=== PATIENT | female | born 1955 | race Caucasian/White ===

== ENCOUNTER 2019-07-11 00:16 | Day surgery (SDC) | payer MEDICAID, SELFPAY ==
[2019-07-06 11:26] VITALS: BMI 27.2
[2019-07-11] MEDS: LACTATED RINGERS 1,000 ML 150 ML IV CONT (12:04)
[2019-07-11 12:08] VITALS: BP 126/79; PULSE 95; RESP 16; TEMP 36.9; O2SAT 97; BMI 26.3
--- NOTE | 2019-07-11 12:16 | WPDANESEPPF ---
Anes - Initial Pre Proc Eval Procedure: Operation Date: 07/11/19 13:00 Proposed Procedures p Screening Colonoscopy - Lake Reyez MD Date/Time: 07/11/19 12:16 Surgeon: Lake Reyez MD Pre Op Diagnosis: Neoplasm Screening Patient Data Age: 64 Gender: F Height: 5 ft 4 in Weight: 69.6 kg Last Vital Signs Temp 36.9 C 07/11/19 12:08 Pulse 95 07/11/19 12:08 Resp 16 07/11/19 12:08 BP 126/79 07/11/19 12:08 Pulse Ox 97 07/11/19 12:08 Allergies Allergy/AdvReac Type Severity Reaction Status Date / Time morphine Allergy Unknown Hallucinati Verified 07/11/19 12:06 Home Medications Medication Instructions Recorded Confirmed Type hydrochlorothiazide 25 mg tablet 25 mg PO DAILY 05/09/19 07/06/19 History lisinopril 30 mg tablet 30 mg PO DAILY 05/09/19 07/06/19 History cholecalciferol (vitamin D3) 2,000 unit PO DAILY 07/06/19 07/06/19 History [Vitamin D3] iron-vit C-vit G83-kixxi acid 1 tablet PO DAILY 07/06/19 07/06/19 History [Iron 100 Plus] cp-yj-mzuf-FA-Ca carb-vit K 1 tablet PO DAILY 07/06/19 07/06/19 History [Women's Multivitamin] omeprazole magnesium [Prilosec OTC] 20 mg PO DAILY 07/06/19 07/11/19 History Patient hx anesthesia problems: none Family hx anesthesia problems: none PMFSH Past Medical History Medical History Chronic airway obstruction Hypertension Nicotine dependence Family History Family History Mother Diabetes mellitus Cerebrovascular accident Family history of diabetes mellitus in first degree relative Family history of heart disease in male family member before age 55 Father Family history of colonic diverticulitis Family history of malignant neoplasm Carcinoma of colon Sibling Family history of diabetes mellitus in first degree relative Other Family history of arthritis Hypertension Social History Social History Smoking status: Current every day smoker Alcohol intake: current Anes - Eval Final PreProcedure Day of Procedure 07/11/19 12:16 Patient weight: overweight Heart: regular rate and rhythm Lungs: clear to auscultation Airway: Mallampati scale class II, special considerations and other (dentures) Neurological: alert and oriented Last oral intake: >/= 8 hours ASA classification: III Emergent: no Anesthetic plan: proceed Anesthesia type and monitoring: general GIVS and standard monitoring Informed Consent: The patient's anesthetic plan and its attendant risks and benefits were discussed with the patient/family/POA. Questions were solicited and answers provided to the satisfaction of the patient/family/POA.
--- NOTE | 2019-07-11 12:56 | PM.HPGS ---
History of Present Illness History of Present Illness Consent: Risks, benefits, and alternatives have been discussed and questions answered. Patient agrees to proceed with procedure. Chief complaint: Neoplasm Screening Narrative: Vero Castro is a 64 year old female with history of polyps, also partial colectomy for diverticulitis Review of Systems Constitutional: Constitutional: Denies headache(s) and Denies weakness Eyes: Eyes: Denies blurry vision ENT: Reports Normal hearing present, Denies headache(s) and Denies neck pain Cardiovascular: Cardiovascular: Denies chest pain and Denies dyspnea Respiratory: Respiratory: Denies dyspnea Gastrointestinal: Gastrointestinal: Reports no additional gastrointestinal complaints Genitourinary: Genitourinary: Denies dysuria Musculoskeletal: Musculoskeletal: Denies neck pain Integumentary/Breasts: Skin/Breast: Denies dry skin Neurologic: Reports Normal hearing present, Denies headache(s) and Denies weakness Psychiatric: Psychiatric: Denies anxiety Endocrine: Endocrine: Denies change in body appearance Hematologic/Lymphatic: Hematologic/Lymphatic: Denies easy bleeding Allergic/Immunologic: Allergic/Immunologic: Denies urticaria PMF Past Medical History Medical History Chronic airway obstruction Hypertension Nicotine dependence Family History Family History Mother Diabetes mellitus Cerebrovascular accident Family history of diabetes mellitus in first degree relative Family history of heart disease in male family member before age 55 Father Family history of colonic diverticulitis Family history of malignant neoplasm Carcinoma of colon Sibling Family history of diabetes mellitus in first degree relative Other Family history of arthritis Hypertension Social History Social History Smoking status: Current every day smoker Alcohol intake: current Meds Home Medications and Allergies Home Medications Medication Instructions Recorded Confirmed Type hydrochlorothiazide 25 mg tablet 25 mg PO DAILY 05/09/19 07/06/19 History lisinopril 30 mg tablet 30 mg PO DAILY 05/09/19 07/06/19 History cholecalciferol (vitamin D3) 2,000 unit PO DAILY 07/06/19 07/06/19 History [Vitamin D3] iron-vit C-vit E48-scdrf acid 1 tablet PO DAILY 07/06/19 07/06/19 History [Iron 100 Plus] jw-te-zafd-FA-Ca carb-vit K 1 tablet PO DAILY 07/06/19 07/06/19 History [Women's Multivitamin] omeprazole magnesium [Prilosec OTC] 20 mg PO DAILY 07/06/19 07/11/19 History Allergies Allergy/AdvReac Type Severity Reaction Status Date / Time morphine Allergy Unknown Hallucinati Verified 07/11/19 12:06 ng Vital Signs Vital Signs - 24 hr 07/11/19 12:08 Temperature 98.5 F Pulse Rate 95 Respiratory Rate 16 Blood Pressure 126/79 Pulse Oximetry 97 Exam Const: General: comfortable and no acute distress HENMT: General nose exam: Normal nares present Eyes: General: appearance normal, both eyes and all related structures Neck: Neck: no JVD Resp: Auscultation: clear to auscultation bilaterally Cardio: Rate: regular rate Rhythm: regular rhythm GI: Inspection: non-distended GI Palp: Yes Soft to palpation Skin: General skin exam: normal color Neuro: General: gait normal Speech: normal speech Extrem: General: normal to inspection Psych: Mental Status: mental status grossly normal Assessment and Plan Assessment and plan (1) Adenomatous colon polyp: Qualifiers: Colon location: unspecified part of colon Qualified Code(s): D12.6 - Benign neoplasm of colon, unspecified Code(s): D12.6 - Benign neoplasm of colon, unspecified Status: Acute Assessment and Plan: will proceed with colonoscopy (2) Colon, diverticulosis: Code(s): K57.30 - Diverticul
[2019-07-11 13:25] VITALS: BP 98/43; PULSE 80; RESP 24; O2SAT 100
[2019-07-11 13:35] VITALS: BP 105/69; PULSE 81; RESP 22; O2SAT 100
== END 2019-07-11 13:52 | disposition home or self-care (01) ==
PROVIDERS: PCP Internal Medicine; Visit Provider Internal Medicine Gastroenterology
PROC: 0DJD8ZZ Inspection of Lower Intestinal Tract, Via Natural or Artificial Opening Endoscopic (ICD-10-PCS; CPT 45378; principal; 2019-07-11 13:00)
DX: Z12.11 Encounter for screening for malignant neoplasm of colon (principal); D12.3 Benign neoplasm of transverse colon; D12.2 Benign neoplasm of ascending colon; K57.30 Diverticulosis of large intestine without perforation or abscess without bleeding; K63.89 Other specified diseases of intestine; K64.8 Other hemorrhoids; Z98.0 Intestinal bypass and anastomosis status; J44.9 Chronic obstructive pulmonary disease, unspecified; I10 Essential (primary) hypertension; F17.210 Nicotine dependence, cigarettes, uncomplicated
CPT/HCPCS: 45385; 45381; 88305; J2704; J7120

== ENCOUNTER 2019-11-30 09:46 | Outpatient (CLI) | payer OTHER, SELFPAY ==
--- NOTE | ~2019-11-30 | CT_ITS ---
EXAMINATION: CT abdomen pelvis wo/w con EXAM DATE: 11/30/2019 10:59 INDICATION: Adrenal mass. TECHNIQUE: Spiral CT of the abdomen without contrast followed by both abdomen and pelvis with 100 cc intravenous Omnipaque 350. Delayed scan through the adrenal glands also obtained to evaluate washout characteristic. Axial, coronal and sagittal images were reviewed. The dose-length product (DLP) for this examination was 1078.81 mGy-cm. The exposure was tailored according to patient size (auto mA ex posure control), and iterative reconstruction (ASIR) was used as additional dose reduction technique. Comparison is made to prior examination from 12/14/2017. FINDINGS: There is 1.7 cm right adrenal gland lesion measuring -5 Hounsfield units on noncontrast seq uence, 72 Hounsfield units on the arterial phase, -2 Hounsfield units on delayed sequence. This is di agnostic of an adenoma, benign, and is unchanged compared to a study from 2018. Mildly dilated mid abdominal aorta at 2.4 cm. The liver, spleen and pancreas are unremarkable. Gallb ladder is unremarkable. No biliary obstruction. Portal and splenic veins are patent. Kidneys enhan ce symmetrically. There is no hydronephrosis. Bilateral renal cysts, largest on the right measuring 3.5 cm. The uterus is not identified and has likely been surgically resected. The bladder is unrema rkable. There is no retroperitoneal or pelvic lymphadenopathy. There is mild to moderate scattered arteriosclerotic disease. The appendix is normal. There is moderate-sized gastroesophageal hiatal hernia. There is moderate co lonic diverticulosis. There is no adjacent inflammatory change to suggest diverticulitis. Expected amount of colonic stool. No free intraperitoneal gas. The heart is normal in size. There are no pericardial or pleural effusions. The lung bases are unremarkable. There are no osteoblastic or ost eolytic lesions identified. There is mild to moderate compression fracture at the superior endplate o f L2, unchanged IMPRESSION: 1. Right adrenal adenoma unchanged. 2. Moderate scattered colonic diverticulosis. 3. Mildly dilated abdominal aorta. Reviewed, dictated and finalized at location B.
[2019-11-30 10:29] LABS: Estimated Glomerular Filt Rate > 60
== END 2019-11-30 09:47 | disposition home or self-care (01) ==
LOC: ANHIMG 09:50
PROVIDERS: PCP Internal Medicine; Visit Provider Internal Medicine Endocrinology, Diabetes & Metabolism
DX: E04.9 Nontoxic goiter, unspecified (principal); E27.8 Other specified disorders of adrenal gland; R73.03 Prediabetes; S32.029A Unspecified fracture of second lumbar vertebra, initial encounter for closed fracture; D35.01 Benign neoplasm of right adrenal gland; K57.30 Diverticulosis of large intestine without perforation or abscess without bleeding; X58.XXXA Exposure to other specified factors, initial encounter
CPT/HCPCS: 36415; 74178; Q9967

== ENCOUNTER 2019-12-07 08:50 | Outpatient (CLI) | payer OTHER, SELFPAY ==
--- NOTE | ~2019-12-07 | DEXA_ITS ---
Bone Density Report Name: Vero Castro Age: 64 Sex: Female Ethnicity: White Date of : 1955 Indication: postmenopausal; parental hip fracture; inflammatory bowel disease; prior fracture; hysterectomy; Referring Provider: Merly Schulte Study: Bone densitometry was performed. Exam Date: December 07, 2019 Accession number: [id number] Bone Density: Region BMD T-score Z-score Classification AP Spine (L1-L4) 1.069 0.2 2.0 Normal Femoral Neck (Left) 0.759 -0.8 0.7 Normal Total Hip (Left) 0.881 -0.5 0.7 Normal Total Hip Bilateral Avg 0.890 -0.5 0.8 Normal Femoral Neck (Right) 0.646 -1.8 -0.3 Osteopenia Total Hip (Right) 0.899 -0.4 0.9 Normal World Health Organization criteria for BMD impression classify patients as: Normal (T-score at or above -1.0), Osteopenia (T-score between -1.0 and -2.5), or Osteoporosis (T-score at or below -2.5). 10-year Fracture Risk: FRAX not reported because: Prior hip or vertebral fracture Previous Exams: Region Exam Age BMD T-score BMD Change BMD Change Date g/cm2 vs Baseline vs Previous AP Spine(L1-L4) 12/07/2019 64 1.069 0.2 0.094(9.6%)* 0.094(9.6%)* 10/02/2014 59 0.975 -0.7 Total Hip(Left) 12/07/2019 64 0.881 -0.5 -0.092(-9.4%)* -0.092(-9.4%)* 10/02/2014 59 0.972 0.2 Total Hip(Right) 12/07/2019 64 0.899 -0.4 -0.036(-3.9%)* -0.036(-3.9%)* 10/02/2014 59 0.935 -0.1 *Denotes significance at 95% confidence level, LSC for AP Spine = 0.022 g/cm2, LSC for Total Hip = 0.027 g/cm2 Clinical Information Provided by Patient: Have had a previous hip or vertebral fracture Has had a low trauma fracture Parent has had a hip fracture Smokes Has used the following medications: Vitamin D, Calcium Has the following medical conditions: Inflammatory bowel diseases, Hysterectomy Patient maximum height was 64 Menopause Age: 27 No regular weight bearing exercise Drinks caffeinated beverages Onset of menses at age 13 Number of children 3 Impression: The patient has low bone mass, based on the Right Femoral Neck T-score. The patient has risk factors, including: parental hip fracture, smoking, previous fracture. The BMD for the Total Hip(Left) decreased, changing by -9.4% since the last DXA exam. The BMD for the Total Hip(Right) decreased, changing by -3.9% since the last DXA exam. Discussion: INCREASED RISK OF FRACTURE DUE TO HISTORY OF FRACTURE. The patient's previous fracture puts the patient at high risk of a futur
== END 2019-12-07 08:51 | disposition home or self-care (01) ==
PROVIDERS: PCP Internal Medicine; Visit Provider Internal Medicine Endocrinology, Diabetes & Metabolism
DX: R73.03 Prediabetes (principal); E27.8 Other specified disorders of adrenal gland; E04.9 Nontoxic goiter, unspecified; S32.029A Unspecified fracture of second lumbar vertebra, initial encounter for closed fracture; X58.XXXA Exposure to other specified factors, initial encounter; M85.851 Other specified disorders of bone density and structure, right thigh
CPT/HCPCS: 77080

== ENCOUNTER 2019-12-11 13:50 | Outpatient (CLI) | payer OTHER, SELFPAY ==
--- NOTE | ~2019-12-11 | US_ITS ---
EXAMINATION: US thyroid DATE: 12/11/2019 14:47 INDICATION: Goiter TECHNIQUE: Multiple ultrasound images of the thyroid were obtained. COMPARISON: None. FINDINGS: The right thyroid lobe measures 6.2 x 2.3 x 2.5 cm. The left thyroid lobe measures 5.2 x 2.8 x 2.2 c m. Multiple bilateral thyroid nodules which include several subcentimeter nodules which are cystic o r predominantly cystic and a few larger nodules which vary from fairly evenly mixed solid and cystic to primarily solid. Mixed solid and cystic nodule is isoechoic with smooth margins measuring 1.3 x 1. 3 x 1.4 cm (TI-RADS 2, not suspicious, no FNA recommended). There are a pair of predominantly solid i soechoic nodules with smooth margins, both which are wider than tall (TI-RADS 4, moderately suspiciou s , FNA if >=1.5 cm, annual followup is >1 cm) mid inferior left thyroid lobe the more cephalad measu ring 1.4 x 1.7 x 1.5 cm and the more caudal measuring 1.9 x 1.7 x 1.6 cm. There is mildly coarsened e chotexture throughout the remainder of the thyroid. IMPRESSION: 1. Multinodular goiter. There are 2 similar-appearing predominant solid TI RADS 4 nodules at the mid inferior left thyroid which would meet criteria for ultrasound-guided biopsy. Would recommend biopsy of at least the larger nodule and could consider biopsy of the second lightly smaller nodule as well. Reviewed, dictated and finalized at location A. IMPRESSION: 1. Multinodular goiter. There are 2 similar-appearing predominant solid TI RADS 4 nodules at the mid inferior left thyroid which would meet criteria for ultra sound-guided biopsy. Would recommend biopsy of at least the larger nodule and c ould consider biopsy of the second lightly smaller nodule as well.
== END 2019-12-11 13:51 | disposition home or self-care (01) ==
PROVIDERS: PCP Internal Medicine; Visit Provider Internal Medicine Endocrinology, Diabetes & Metabolism
DX: E04.2 Nontoxic multinodular goiter (principal); E27.8 Other specified disorders of adrenal gland; R73.03 Prediabetes; S32.029A Unspecified fracture of second lumbar vertebra, initial encounter for closed fracture; X58.XXXA Exposure to other specified factors, initial encounter
CPT/HCPCS: 76536

== ENCOUNTER 2020-10-03 07:55 | Outpatient (CLI) | payer OTHER, SELFPAY ==
--- NOTE | ~2020-10-03 | MM_ITS ---
EXAMINATION: MM screening marilee BI w karl HISTORY: Screening mammogram TECHNIQUE: Craniocaudal and mediolateral oblique 3-D tomosynthesis images were obtained and synthetic 2-D images were generated. CAD analysis was submitted and interpreted. COMPARISON: 11/09/2016 diagnostic left digital mammogram 10/27/2016, 10/16/2015, 10/02/2014 bilateral digital screening mammogram examinations BREAST PARENCHYMAL COMPOSITION: There are scattered areas of fibroglandular density. FINDINGS: There is no evidence of suspicious mass, calcification, or architectural distortion to sugg est malignancy in either breast. There has been no suspicious interval change. IMPRESSION: 1. No mammographic evidence of malignancy. 2. Recommend routine screening mammography in one year. BI-RADS Category 1: Negative Reviewed, dictated and finalized at location A.
== END 2020-10-03 07:56 | disposition home or self-care (01) ==
PROVIDERS: PCP Internal Medicine
DX: Z12.31 Encounter for screening mammogram for malignant neoplasm of breast (principal)
CPT/HCPCS: 77063; 77067

== ENCOUNTER 2021-10-13 08:05 | Outpatient (CLI) | payer MEDICAID, SELFPAY ==
--- NOTE | ~2021-10-13 | MM_ITS ---
EXAMINATION: MM screening marilee BI w karl HISTORY: Screening TECHNIQUE: Craniocaudal and mediolateral oblique 3-D tomosynthesis images were obtained and synthetic 2-D images were generated. CAD analysis was submitted and interpreted. COMPARISON: Comparison to multiple prior studies sequentially, with oldest reviewed study dated 10/02. BREAST PARENCHYMAL COMPOSITION: There are scattered areas of fibroglandular density. FINDINGS: The left breast is stable without evidence for malignancy. There are subtle asymmetries in the central aspect of the right breast. IMPRESSION: 1. Subtle right breast asymmetries, slightly more prominent than on prior studies. 2. Additional mammographic views and possible breast ultrasound are recommended. BI-RADS Category 0: Incomplete: Needs additional imaging evaluation. Reviewed, dictated and finalized at location A. IMPRESSION: 1. Subtle right breast asymmetries, slightly more prominent than on prior studi es. 2. Additional mammographic views and possible breast ultrasound are recommended . BI-RADS Category 0: Incomplete: Needs additional imaging evaluation.
== END 2021-10-13 08:06 | disposition home or self-care (01) ==
PROVIDERS: PCP Internal Medicine; Visit Provider Internal Medicine
DX: Z12.31 Encounter for screening mammogram for malignant neoplasm of breast (principal); R92.8 Other abnormal and inconclusive findings on diagnostic imaging of breast
CPT/HCPCS: 77063; 77067

== ENCOUNTER 2021-11-25 11:19 | Outpatient (CLI) | payer MEDICAID, SELFPAY ==
--- NOTE | ~2021-11-25 | MMUS_ITS ---
EXAMINATION: MM diagnostic marilee RT w karl, US breast RT complete HISTORY: Subtle right breast asymmetries reported on 10/23/2021 screening mammogram TECHNIQUE: Additional 3-D tomosynthesis images of the right breast were performed and synthetic 2-D i mages were generated. CAD analysis was submitted and interpreted. High resolution complete right lolly st ultrasound was performed. COMPARISON: 10/23/2021,, 10/27/2016 bilateral screening mammogram examinations FINDINGS: MAMMOGRAPHIC FINDINGS: Number. 2020 control and 1%. There is resection of ULTRASOUND: There is no evidence of focal abnormal solid or cystic lesion in the vicinity of the IMPRESSION: 1. 2. Reviewed, dictated and finalized at location A. IMPRESSION: 1. 2. IMPRESSION: 1. 2.
== END 2021-11-25 11:20 | disposition home or self-care (01) ==
PROVIDERS: PCP Internal Medicine; Visit Provider Internal Medicine
DX: R92.8 Other abnormal and inconclusive findings on diagnostic imaging of breast (principal)
CPT/HCPCS: 76641; 77061; 77065; G0279

== ENCOUNTER 2022-11-04 02:58 | Day surgery (SDC) | payer MEDICARE, MEDICAID, SELFPAY ==
[2022-10-13 14:15] VITALS: BMI 27.7
[2022-11-04 07:21] VITALS: BP 127/78; PULSE 78; RESP 20; TEMP 36.4; O2SAT 99
[2022-11-04] MEDS: LACTATED RINGERS 1,000 ML 150 ML IV CONT (07:29)
--- NOTE | 2022-11-04 08:09 | WPDANESEPPF ---
Anes - Initial Pre Proc Eval Procedure: Operation Date: 11/04/22 08:30 Proposed Procedures p Colonoscopy - Lake Reyez MD Date/Time: 11/04/22 08:09 Surgeon: Lake Reyez MD Pre Op Diagnosis: hx colon polyps Patient Data Age: 67 Gender: F Height: 1.63 m Weight: 70.6 kg Last Vital Signs Temp 97.5 F L 11/04/22 07:21 Pulse 78 11/04/22 07:21 Resp 20 11/04/22 07:21 BP 127/78 11/04/22 07:21 Pulse Ox 99 11/04/22 07:21 O2 Del Method Room Air 11/04/22 07:21 Allergies Allergy/AdvReac Type Severity Reaction Status Date / Time morphine Allergy Unknown Hallucinati Verified 11/04/22 07:19 ng Home Medications Medication Instructions Recorded Confirmed Type hydrochlorothiazide 25 mg tablet 25 mg PO DAILY 05/09/19 10/13/22 History lisinopril 30 mg tablet 30 mg PO DAILY 05/09/19 10/13/22 History cholecalciferol (vitamin D3) 50 2,000 unit PO DAILY 07/06/19 10/13/22 History mcg (2,000 unit) tablet (Vitamin D3) iron-vit C-vit A73-qeozd acid 100 1 tablet PO DAILY 07/06/19 10/13/22 History mg-250 mg-25 mcg-1 mg tablet (Iron) bpuzgpwy-loh-ecup-FA-Ca carb-vit K 1 tablet PO DAILY 07/06/19 10/13/22 History 18 mg iron-400 mcg-500 mg tablet (Women's Multivitamin) anastrozole 1 mg tablet 1 mg PO DAILY 10/13/22 10/13/22 History pantoprazole 20 mg tablet,delayed 20 mg PO DAILY 10/13/22 10/13/22 History release pravastatin 10 mg tablet 10 mg PO DAILY 10/13/22 10/13/22 History Patient hx anesthesia problems: none Family hx anesthesia problems: none Results Review: All pre-operative results and documents have been reviewed as part of the pre-operative evaluation. [facility] Past Medical History Medical History Adenomatous colon polyp Chronic airway obstruction Colon, diverticulosis Hypertension Nicotine dependence Family History Family History Mother Diabetes mellitus Cerebrovascular accident Family history of diabetes mellitus in first degree relative Family history of heart disease in male family member before age 55 Father Family history of colonic diverticulitis Family history of malignant neoplasm Carcinoma of colon Sibling Family history of diabetes mellitus in first degree relative Other Family history of arthritis Hypertension Social History Social History Smoking packs per day: 1 Smoking cigarettes per day: 20.0 Years smoked: 50 Smoking pack-years: 50.00 Smoking status: Current every day smoker Tobacco type: cigarettes Alcohol intake: current Drinks per week: 6 Substance use type: does not use Living arrangements: with family Spiritual care concerns: No Anes - Eval Final PreProcedure Day of Procedure 11/04/22 08:09 Patient weight: normal Heart: regular rate and rhythm Lungs: clear to auscultation Airway: Mallampati scale class II Neurological: alert and oriented Last oral intake: >/= 8 hours ASA classification: III Emergent: no Anesthetic plan: proceed Anesthesia type and monitoring: general GIVS and standard monitoring Results Review: All pre-operative results and documents have been reviewed as part of the pre-operative evaluation. Informed Consent: The patient's anesthetic plan and its attendant risks and benefits were discussed with the patient/family/POA. Questions were solicited and answers provided to the satisfaction of the patient/family/POA.
--- NOTE | 2022-11-04 08:21 | PM.HPGS ---
History of Present Illness History of Present Illness Consent: Risks, benefits, and alternatives have been discussed and questions answered. Patient agrees to proceed with procedure. Chief complaint: hx colon polyps Narrative: Vero Castro is a 67 year old female with colon polyp in 2019 Review of Systems Constitutional: Constitutional: Denies headache(s) and Denies weakness Eyes: Eyes: Denies blurry vision ENT: Reports Normal hearing present, Denies headache(s) and Denies neck pain Cardiovascular: Cardiovascular: Denies chest pain and Denies dyspnea Respiratory: Respiratory: Denies dyspnea Gastrointestinal: Gastrointestinal: Reports no additional gastrointestinal complaints Genitourinary: Genitourinary: Denies dysuria Musculoskeletal: Musculoskeletal: Denies neck pain Integumentary/Breasts: Skin/Breast: Denies dry skin Neurologic: Reports Normal hearing present, Denies headache(s) and Denies weakness Psychiatric: Psychiatric: Denies anxiety Endocrine: Endocrine: Denies change in body appearance Hematologic/Lymphatic: Hematologic/Lymphatic: Denies easy bleeding Allergic/Immunologic: Allergic/Immunologic: Denies urticaria [facility] Past Medical History Medical History Adenomatous colon polyp Chronic airway obstruction Colon, diverticulosis Hypertension Nicotine dependence Family History Family History Mother Diabetes mellitus Cerebrovascular accident Family history of diabetes mellitus in first degree relative Family history of heart disease in male family member before age 55 Father Family history of colonic diverticulitis Family history of malignant neoplasm Carcinoma of colon Sibling Family history of diabetes mellitus in first degree relative Other Family history of arthritis Hypertension Social History Social History Smoking packs per day: 1 Smoking cigarettes per day: 20.0 Years smoked: 50 Smoking pack-years: 50.00 Smoking status: Current every day smoker Tobacco type: cigarettes Alcohol intake: current Drinks per week: 6 Substance use type: does not use Living arrangements: with family Spiritual care concerns: No Meds Home Medications and Allergies Home Medications Medication Instructions Recorded Confirmed Type hydrochlorothiazide 25 mg tablet 25 mg PO DAILY 05/09/19 10/13/22 History lisinopril 30 mg tablet 30 mg PO DAILY 05/09/19 10/13/22 History cholecalciferol (vitamin D3) 50 2,000 unit PO DAILY 07/06/19 10/13/22 History mcg (2,000 unit) tablet (Vitamin D3) iron-vit C-vit P67-dbdve acid 100 1 tablet PO DAILY 07/06/19 10/13/22 History mg-250 mg-25 mcg-1 mg tablet (Iron) vkwfngnd-wcu-dyim-FA-Ca carb-vit K 1 tablet PO DAILY 07/06/19 10/13/22 History 18 mg iron-400 mcg-500 mg tablet (Women's Multivitamin) anastrozole 1 mg tablet 1 mg PO DAILY 10/13/22 10/13/22 History pantoprazole 20 mg tablet,delayed 20 mg PO DAILY 10/13/22 10/13/22 History release pravastatin 10 mg tablet 10 mg PO DAILY 10/13/22 10/13/22 History Allergies Allergy/AdvReac Type Severity Reaction Status Date / Time morphine Allergy Unknown Hallucinati Verified 11/04/22 07:19 ng Vital Signs Vital Signs - 24 hr 11/04/22 07:21 Temperature 97.5 F L Pulse Rate 78 Respiratory Rate 20 Blood Pressure 127/78 Pulse Oximetry 99 Oxygen Delivery Room Air Exam Const: General: comfortable and no acute distress HENMT: Face/Nose/Sinus: Normal nares present Eyes: General: appearance normal, both eyes and all related structures Neck: Neck: no JVD Resp: Auscultation: clear to auscultation bilaterally Cardio: Rate: regular rate Rhythm: regular rhythm GI: Inspection: non-distended GI Palp: Yes Soft to palpation Skin: General skin exam: normal color Neuro: Genera
[2022-11-04 08:41] VITALS: BP 107/72; PULSE 81; RESP 24; O2SAT 98
[2022-11-04 08:51] VITALS: BP 101/62; PULSE 78; RESP 22; O2SAT 100
[2022-11-04 09:01] VITALS: BP 127/68; PULSE 74; RESP 21; O2SAT 99
== END 2022-11-04 09:05 | disposition home or self-care (01) ==
PROVIDERS: PCP Internal Medicine; Visit Provider Internal Medicine Gastroenterology
PROC: 0DJD8ZZ Inspection of Lower Intestinal Tract, Via Natural or Artificial Opening Endoscopic (ICD-10-PCS; CPT 45378; principal; 2022-11-04 08:30)
DX: Z12.11 Encounter for screening for malignant neoplasm of colon (principal); K57.30 Diverticulosis of large intestine without perforation or abscess without bleeding; K63.5 Polyp of colon; K64.8 Other hemorrhoids; I10 Essential (primary) hypertension; Z79.811 Long term (current) use of aromatase inhibitors; F17.210 Nicotine dependence, cigarettes, uncomplicated
CPT/HCPCS: 45380; 88305; J2704; J7120

== ENCOUNTER 2023-09-13 11:52 | Emergency (ER) | payer MEDICARE, MEDICAID, SELFPAY ==
--- NOTE | ~2023-09-13 | XR_ITS ---
EXAMINATION: XR knee RT 3V DATE: 09/13/2023 14:21 INDICATION: Right knee pain. TECHNIQUE: 4 views of right knee were obtained. COMPARISON: None. FINDINGS: Bone alignment is normal. No fracture. There is mild tricompartmental osteoarthritis. There is a small knee joint effusion. IMPRESSION: 1. Mild right knee osteoarthritis. 2. Small right knee joint effusion. Reviewed, dictated and finalized at location A.
--- NOTE | ~2023-09-13 | US_ITS ---
EXAMINATION: US venous doppler LE RT DATE: 09/13/2023 14:15 INDICATION: Right calf pain. TECHNIQUE: Grayscale ultrasound images without and with compression and Doppler ultrasound images of the right lower extremity veins were obtained. COMPARISON: None. FINDINGS: The visualized portions of right common femoral vein, profunda (deep) femoral vein, femoral vein, pop liteal vein, peroneal veins, posterior tibial veins, and greater saphenous vein outflow are patent. IMPRESSION: 1. No deep venous thrombosis. Reviewed, dictated and finalized at location A.
[2023-09-13 12:06] VITALS: BP 143/91; PULSE 77; RESP 18; TEMP 36.4; O2SAT 98
--- NOTE | 2023-09-13 13:38 | ED.LOWEXIN ---
HPI - Extremity Injury (Lower) General Chief Complaint: Extremity Injury, Lower Stated Complaint: R leg pain Time Seen by Provider: 09/13/23 13:36 Source: patient Mode of arrival: ambulatory Limitations: no limitations History of Present Illness HPI Narrative: 68 years old white female drove herself to the emergency room complaining of pain at the back of the right knee and back of the calf muscle started 5 days ago, gradually getting worse mainly walking, climbing stairs or standing. She denies any recent trauma. Fever, chills, nausea, vomiting, chest pain, shortness of breath. Patient is not on anti-platelet or anticoagulant medication, history of hypertension, hyperlipidemia, hand arthritis. She does smoke cigarettes and drink alcohol almost daily. Related Data Home Medications Medication Instructions Recorded Confirmed hydrochlorothiazide 25 mg tablet 25 mg PO DAILY 05/09/19 10/13/22 lisinopril 30 mg tablet 30 mg PO DAILY 05/09/19 10/13/22 cholecalciferol (vitamin D3) 50 2,000 unit PO DAILY 07/06/19 10/13/22 mcg (2,000 unit) tablet (Vitamin D3) iron-vit C-vit O25-iajoi acid 100 1 tablet PO DAILY 07/06/19 10/13/22 mg-250 mg-25 mcg-1 mg tablet (Iron) vieryedi-nqa-aawr-FA-Ca carb-vit K 1 tablet PO DAILY 07/06/19 10/13/22 18 mg iron-400 mcg-500 mg tablet (Women's Multivitamin) anastrozole 1 mg tablet 1 mg PO DAILY 10/13/22 10/13/22 pantoprazole 20 mg tablet,delayed 20 mg PO DAILY 10/13/22 10/13/22 release pravastatin 10 mg tablet 10 mg PO DAILY 10/13/22 10/13/22 Allergies Allergy/AdvReac Type Severity Reaction Status Date / Time morphine Allergy Unknown Hallucinati Verified 09/13/23 12:10 ng Review of Systems Review of Systems: All systems reviewed & are unremarkable except as noted in HPI and below PMFSH Past Medical History Medical History Adenomatous colon polyp Chronic airway obstruction Colon, diverticulosis Hypertension Nicotine dependence Family History Family History Mother Diabetes mellitus Cerebrovascular accident Family history of diabetes mellitus in first degree relative Family history of heart disease in male family member before age 55 Father Family history of colonic diverticulitis Family history of malignant neoplasm Carcinoma of colon Sibling Family history of diabetes mellitus in first degree relative Other Family history of arthritis Hypertension Social History Social History Smoking packs per day: 1 Smoking cigarettes per day: 20.0 Years smoked: 50 Smoking pack-years: 50.00 Smoking status: Current every day smoker Tobacco type: cigarettes Alcohol intake: current Drinks per week: 6 Substance use type: does not use Living arrangements: with family Spiritual care concerns: No Exam Narrative: General appearance: Well-developed, well-nourished Skin: Normal color Head: Normocephalic, nontraumatic Eyes: Clear conjunctiva ENT: Oropharynx normal, ears normal, nose normal Neck: Supple, nontender Chest and respiratory: Airway patent, no respiratory distress, no accessory muscle use Heart: Regular rate/rhythm Abdomen: Soft, nontender, no organomegaly, quiet bowel sounds Vascular: Normal peripheral pulses, normal capillary refill. Musculoskeletal: Diffuse tenderness at the back of the right knee, no bruises, no swelling, no rash, slight tenderness at the back of the right calf muscle Neurologic: Alert and oriented ?3, SUPERVISOR PHOTOENGRAVING is normal as tested, no gross motor deficit Course Vital Signs Vi
[2023-09-13 13:50] VITALS: BP 137/81; PULSE 72; RESP 15; O2SAT 98
[2023-09-13 15:59] VITALS: BP 139/83; PULSE 68; RESP 16; TEMP 36.9; O2SAT 98
== END 2023-09-13 16:00 | disposition home or self-care (01) ==
PROVIDERS: Emergency Provider Emergency Medicine; PCP Internal Medicine
DX: M25.561 Pain in right knee (principal); F17.210 Nicotine dependence, cigarettes, uncomplicated; I10 Essential (primary) hypertension
CPT/HCPCS: 73562; 93971; 99284

== ENCOUNTER → 2024-08-15 11:21 | Outpatient (REF) | payer MEDICARE, MEDICAID, SELFPAY ==
--- OUTSIDE RECORDS SUMMARY | 2024-08-15 13:08 | XMS_ITS | Clinical Summary ---
Author Organization [facility] Address [address] [place] [id number] Care Team Providers Care Cage Tender Name Role Phone Jono Baca MD Primary Care Provider Encounters Date Type Department Care Team Description 06/13/2024 8:03 AM GAS PIT WORKER - 06/13/2024 11:59 PM GAS PIT WORKER Hospital Encounter [place] [address] Jono Baca MD Discharge Disposition: Home or Self Care (Routine Discharge) 06/13/2024 Travel from Last 3 Months Social History Tobacco Use Types Packs/Day Years Used Date Smoking Tobacco: Never Assessed Comments Unknown Sex and Gender Information Value Date Recorded Sex Assigned at Not on file Legal Sex Female 10:36 AM CDT Gender Identity Not on file Sexual Orientation Not on file Plan of Treatment Health Maintenance Due Date Last Done Comments Colorectal Cancer Screening Colonoscopy (10 Years) 1954 Hepatitis C 1972 Annual Medicare Wellness Visit 2019 DTaP, Tdap and Td Vaccines ( 2 - Td or Tdap) 02/23/2021 02/23/2011 COVID-19 Vaccine (4 - 2023-2 5 season) 2024 05/14/2021, 08/16/2020, 07/19/2020 Influenza Adult (#1) 2024 05/14/2021 Mammogram Screening 12/12/2025 12/13/2023, 12/07/2022, 01/03/2019 RSV Immunization or 60+ Years (1 - 1-dose 75+ series) 2029 Zoster Vaccines Completed 01/08/2022, 09/18/2021 Dexa Scan (General) Completed 11/11/2022, 11/11/2022 Pneumococcal Vaccine: 65+ Years Completed 04/20/2023 Meningococcal B Vaccine Aged Out No l onger eligible based on patient's age to complete this topic Meningococcal Vaccine Aged Out No jose luis neema eligible based on patient's age to complete this topic RSV Immunizations Under 20 Months Aged Out No longer eligible b ased on patient's age to complete this topic Procedures Procedure Name Priority Date/Time Associated Diagnosis Comments CT LUNG SCREENING Routine 06/13/2024 8:2 2 AM GAS PIT WORKER Nicotine dependence, cigarettes, uncomplicated MG SCREENING W MIRACLE FUNMI DIGI Routine 01/03/2019 8:57 AM CDT Screening breast examination from Last 3 Months or Most Recently Relevant to Health Maintenance Results * CT LUNG SCREENING (06/13/2024 8:22 AM GAS PIT WORKER) Anatomical Region Laterality Modality Chest Computed Tomogra phy 06/13/2024 9:35 AM GAS PIT WORKER Impressions 06/13/2024 9:55 AM GAS PIT WORKER IMPRESSION: 1. LUNG-RADS category 2. Stable. Benign behavior. 2. LUNG-RADS category S: Enlarged thyroid gland, possible multinodular.. 3. Coronary artery disease. RECOMMENDATIONS: 1. Thyroid sonogram. 2. Return to annual LDCT screening on or around June 2025. Ordered By: JONO BACA Interpreted By: Ted Ledesma MD, 06/13/2024 9:35 AM Narrative 06/13/2024 9:55 AM GAS PIT WORKER [address] [address] Examination: Lung Screening Low-Dose Ct Thorax Without Contrast Exam Date/Time: 06/13/2024 8:17 AM HISTORY: Lung cancer screening. Comparison: Low-dose CT LUNG screen 05/11/2023. CT chest on 01/21/2024 TECHNIQUE: Computed tomography of the chest performed without. A dose lowering technique was used for this procedure, which may include, but is not limited to, dose reduction technique, automated exposure control, the use of iterative reconstruction, and ALARA (As Low As Reasonably Achievable) / Image Gently techniques. FINDINGS: Lung Screening Specific (LUNG-RADS): Nodule 1: Stable right apical elliptical nodule measuring 6.3 x 23.1 mm (axial lung window image 27) Nodule 2: Stable right upper lobe 3 mm micronodule (axial lung window image 34) Nodule 3: Stable posterior right lower lobe small cluster tree-in-bud micronodules (axial lung window image 61) No new or progressive nodules. Potentially Significant Incidentals (LUNG-RADS category S): Thyroid goiter. Possible multiple nodules measuring up to 1.6 cm. Poorly delineated on noncontrast CT.. Pulmonary Incidentals: Mild diffuse centrilobular emphysema.. Lingular focal bronchiolectasis with subcentimeter calcification and minimal mucous plugging probably post inflammatory. Other Incidentals: Calcified mediastinal and hilar lymph nodes compatible with prior granulomatous exposure along with the subcentimeter lung calcified granulomas and splenic granulomatous calcifications. Large hiatal hernia with the gastric fundus in the posterior mediastinum. Coronary artery disease. Atherosclerotic thoracic aorta. Splenic calcifications. Clips in the right axillary region. Clips in the right breast. Probable renal cysts (no further follow-up recommended according consensus guidelines). Procedure Note Ted Ledesma MD - 06/13/[address] [address] Examination: Lung Screening Low-Dose Ct Thorax Without Contrast Exam Date/Time: 06/13/2024 8:17 AM HISTORY: Lung cancer screening. Comparison: Low-dose CT LUNG screen 05/11/2023. CT chest on 01/21/2024 TECHNIQUE: Computed tomography of the chest performed without. A doselowering technique was used for this procedure, which may include, but isnot limited to, dose reduction technique, automated exposure control, theuse of iterative reconstruction, and ALARA (As Low As ReasonablyAchievable) / Image Gently techniques. FINDINGS: Lung Screening Specific (LUNG-RADS): Nodule 1: Stable right apical elliptical nodule measuring 6.3 x 23.1 mm(axial lung window image 27) Nodule 2: Stable right upper lobe 3 mm micronodule (axial lung windowimage 34) Nodule 3: Stable posterior right lower lobe small cluster [id number] (axial lung window image 61) No new or progressive nodules. Potentially Significant Incidentals (LUNG-RADS category S): Thyroidgoiter. Possible multiple nodules measuring up to 1.6 cm. Poorlydelineated on noncontrast CT.. Pulmonary Incidentals: Mild diffuse centrilobular emphysema.. Lingularfocal bronchiolectasis with subcentimeter calcification and minimal mucousplugging probably post inflammatory. Other Incidentals: Calcified mediastinal and hilar lymph nodes compatible with priorgranulomatous exposure along with the subcentimeter lung calcifiedgranulomas and splenic granulomatous calcifications. Large hiatal hernia with the gastric fundus in the posterior mediastinum.Coronary artery disease. Atherosclerotic thoracic aorta. Spleniccalcifications. Clips in the right axillary region. Clips in the rightbreast. Probable renal cysts (no further follow-up recommended accordingconsensus guidelines). IMPRESSION: 1. LUNG-RADS category 2. Stable. Benign behavior. 2. LUNG-RADS category S: Enlarged thyroid gland, possible multinodular.. 3. Coronary artery disease. RECOMMENDATIONS: 1. Thyroid sonogram. 2. Return to annual LDCT screening on or around June 2025. Ordered By: JONO BACA Interpreted By: Ted Ledesma MD, 06/13/2024 9:35 AM Jono Baca MD CT Final Resul t * MG SCREENING W MIRACLE FUNMI DIGI (01/03/2019 8:57 AM CDT) Anatomical Region Laterality Modality Breast Bilateral Mammography 01/05/2019 2:15 PM CDT Impressions 01/05/2019 2:26 PM CDT =====IMPRESSION:===== No mammographic findings suggestive of malignancy. Assessment: ACR BI-RADS Category 2 - Benign. Recommendation: 1: Routine screening mammogram bilateral in 1 year Comments: A negative or benign mammography report should not delay follow-up or biopsy of a clinically significant finding and/or abnormality. Regions of dense breast tissue may obscure small or subtle neoplasms Narrative 01/05/2019 2:26 PM CDT Examination: Digital bilateral screening mammogram with 3-D tomosynthesis Exam Date/Time: 01/03/2019 8:37 AM Clinical history: No family history of breast cancer. No present breast related complaints. Comparison: 4 prior studies were available for comparison dating back to 09/24/2014 Technique: Digital screening mammography of both breasts was performed in addition to 3-D Tomosynthesis technique. This study was read with the assistance of a computer-aided detection system. Tissue density: The breast tissue is heterogeneously dense. Findings: No suspicious masses, or suspicious clustered microcalcifications are seen. Jono Baca MD MAMMO Final Resul t from Last 3 Months or Most Recently Relevant to Health Maintenance [place] [address] [place] [address] MEDICAID Care Teams Cage Tender Relationship Specialty Start Date End Date Jono Baca MD PCP - General INTERNAL MEDICINE 12/20/18
--- OUTSIDE RECORDS SUMMARY | 2024-08-15 13:09 | XMS_ITS | Clinical Summary ---
Author Organization [facility] Address [address] [place] [address] Care Team Providers Care Content Administrator Name Role Phone Unavailable Primary Care Provider Unavailabl e Social History Tobacco Use Types Packs/Day Years Used Date Smoking Tobacco: Never Assessed Comments Unknown Sex and Gender Information Value Date Recorded Sex Assigned at Not on file Legal Sex Female 10:41 AM CDT Gender Identity Not on file Sexual Orientation Not on file Plan of Treatment Health Maintenance Due Date Last Done Comments DEXA Bone Density 1955 Hepatitis C Virus (HCV) Screening 1955 TdaP Immunization 1955 Colonoscopy 1999 Colorectal Cancer Screening 1999 Cologuard 2004 Immunochemical Fecal Occult Blood 2004 Mammogram 2004 Pneumococcal Immunization (5 0+ years) (1 of 1 - PCV) 2004 Zoster Immunization (1 of 2) 2004 Influenza Immunization (#1) 2024 SARS-COV-2 Immunization (3 - season) 2024 08/16/2020, 07/19/2020 Respiratory Syncytial Virus (RSV) Immunization (Adult) (1 - 1-dose 75+ series) 2029 Hepatitis B Immunization Aged Out No longer eligible based on patient's age to complete this topic Meningococcal Immunization (ACWY) Aged Out No longer eligible b ased on patient's age to complete this topic Rotavirus Immunization Aged Out No lo nger eligible based on patient's age to complete this topic
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
== END ==
LOC: ANHLAB 11:21
PROVIDERS: PCP Internal Medicine; Visit Provider Plastic Surgery
DX: D48.5 Neoplasm of uncertain behavior of skin (principal)
CPT/HCPCS: 88305

== ENCOUNTER → 2024-08-29 16:08 | Outpatient (REF) | payer MEDICARE, MEDICAID, SELFPAY ==
--- OUTSIDE RECORDS SUMMARY | 2024-08-29 18:28 | XMS_ITS | Clinical Summary ---
Author Organization [facility] Building [address] [place] [id number] Care Team Providers Care Liner Replacer Name Role Phone Jono Phillips MD Primary Care Provider [phone] Christopher French MD Unavailable [phone] Radha Hamm MD Unavailable [phone] Allergies Active Allergy Reactions Criticality Noted Date Comments Morphine Rash,Itching Medium 11/29/2013 Itching Medications pravastatin (PRAVACHOL) 10 mg tablet Take 1 tablet (10 mg total) by mouth daily 01/21/[address] (PROTONIX) 20 mg EC tablet Take 1 tablet (20 mg total) by mouth daily 01/08/2022 Active lisinopriL (PRINIVIL,ZESTR IL) 30 mg tablet Take 1 tablet (30 mg total) by mouth daily 11/21/2021 Active hydroCHLOROthia zide (HYDRODIURIL) 25 mg tablet Take 1 tablet (25 mg total) by mouth daily 11/21/2021 Active multivitamin capsule Take 1 capsule by mouth daily Active cholecalciferol (VITAMIN D-3) 5,000 unit capsule Take 2,000 Units by mouth daily Active calcium carbonate (OS-AYALA) 1,500 mg (600 mg elemental) tablet daily Active anastrozole (ARIMIDEX) 1 mg tabletIndicatio ns:Hormone Receptor Positive Breast Cancer Take 1 tablet (1 mg total) by mouth daily 90 tablet 1 07/07/2024 Active ibandronate (BONIVA) 150 mg tablet Take 1 tablet (150 mg total) by mouth every 30 (thirty) days Take in AM with glass of water prior to food, don't lie down for 30 minutes. 6 tablet 07/07/2024 Active Active Problems Problem Noted Date Diagnosed Date Personal history of radiation therapy 05/26/2022 Malignant neoplasm of lower- outer quadrant of right breast of female, estrogen receptor positive 02/23/2022 Cancer Staging:Clinical stage from 02/25/2022:Stage IA(cT1, cN0(f), cM0, G2, ER+, VA+, HER2-) - Signed by Radha Hamm MD on 02/25/2022 Pathologic stage from 03/20/2022:Stage IA(pT1b, pN0(sn), cM0, G2, ER+, VA+, HER2-) - Signed by Radha Hamm MD on 03/20/2022 Encounters Date Type Department Care Team Description 07/19/2024 Telephone [facility] On[facility] [address] [place] [address] [address] [place] [address] Eboni Madrigal RN 07/17/2024 8:51 AM HEAD SAMPLER - 07/17/2024 11:59 PM HEAD SAMPLER Hospital Encounter [facility] Cardiac Testing [address] [place] [address] Leg pain, anterior, right; Other specified symptoms and signs involving the circulatory and respiratory systems Discharge Disposition: Discharge to home or self care 07/10/2024 Orders Only [facility] On[facility] [address] [place] [address] [address] [place] [phone] Kym Avendano RN Leg pain, anterior, right (Primary Dx) 07/10/2024 Orders Only [facility] [address] [place] [address] [address] [place] [address] Wesley Jones NP 07/07/2024 1:30 PM HEAD SAMPLER Office Visit [facility] [address] [place] [address] [address] [place] [address] Katlyn, Wesley Lauren, FROTHING MACHINE OPERATOR Malignant neoplasm of lower-outer quadrant of right breast of female, estrogen receptor positive (HCC) (Primary Dx); Encounter for osteoporosis screening in asymptomatic postmenopausal patient; Use of anastrozole; Vitamin D deficiency; Leg pain, anterior, right; Arterial occlusion, lower extremity; Low bone mass 07/07/2024 12:45 PM HEAD SAMPLER Lab [facility] [address] [place] [address] Malignant neoplasm of lower-outer quadrant of right breast of female, estrogen receptor positive (HCC); [facility] (current) use of aromatase inhibitors; Vitamin D deficiency 07/03/2024 Orders Only [facility] On[facility] [address] [place] [address] Eboni Madrigal RN Malignant neoplasm of lower-outer quadrant of right breast of female, estrogen receptor positive (HCC) (Primary Dx) from Last 3 Months Surgical History Surgery Date Site/Laterality Comments CT GUIDED DRAINAGE PERITONEA L OR RETROPERITONEAL FLUID COLLECTION 11/29/2013 N/A US GUIDED BIOPSY LYMPH NODE SUPERFICIAL LEFT 01/29/2022 N/A BREAST BIOPSY 01/29/2022 Right TONSILLECTOMY HYSTERECTOMY 06/07/1980 - 06/06/1981 ORIF DISTAL RADIUS FRACTURE 06/07/2000 - 06/06/2001 Left SKIN GRAFT SPLIT THICKNESS L EG / FOOT 06/07/2010 - 06/06/2011 Bilateral posterior thigh RECTOPERITONEAL FISTULA CLOSURE 06/07/2016 - 06/06/2017 BREAST LUMPECTOMY 03/09/2022 Right Medical History Medical History Date Comments Hypertension Hypercholesteremia GERD (gastroesophageal reflux disease) Breast cancer (HCC) History of radiation therapy rig ht breast 03/28 - 04/28 Family History Medical History Relation Name Comments Cervical cancer Daughter 1 Breast cancer Daughter 2 Colon cancer Father Lung cancer Father Relation Name Status Comments Daughter 1 Alive Daughter 2 Alive Father Mother Alive Social History Tobacco Use Types Packs/Day Years Used Date Smoking Tobacco: Every Day Cigarettes 0.5 52.2 Started: 1972 Smokeless Tobacco: Never Tobacco Cessation:Ready to Q uit: Not Asked; Counseling Given: Not Answered AUDIT-C Answer Date Recorded Q1: How often do you have a drink containing alc ohol? 2-3 times a week 03/28/2022 Q2: How many drinks containi ng alcohol do you have on a typical day when you are drinking? 1 or 2 03/28/2022 Q3: How often do you have si x or more drinks on one occasion? 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 Not on file Not on file Not on file Obstetrics History Para Term AB IAB SAB Ectopic Multiple Livin g Live Births 3 Date Outcome GA Total Labor Labor/2nd/3rd Weight Sex Type Anes PTL Krissy A1 A5 Name Clin Last Filed Vital Signs Vital Sign Reading Time Taken Comments Blood Pressure 135/82 07/07/2024 1:05 PM HEAD SAMPLER Pulse 85 07/07/2024 1:05 PM HEAD SAMPLER Temperature 36.2 C (97.1 F) 07/07/2024 1:05 PM HEAD SAMPLER Respiratory Rate 18 07/07/2024 1:05 PM HEAD SAMPLER Oxygen Saturation 99% 07/07/2024 1:05 PM HEAD SAMPLER Inhaled Oxygen Concentration - - Weight 71.7 kg (158 lb) 07/07/2024 1:05 PM HEAD SAMPLER Height 162.6 cm (5' 4 ) 07/07/2024 1:05 PM HEAD SAMPLER Body Mass Index 27.12 07/07/2024 1:05 PM HEAD SAMPLER Plan of Treatment Health Maintenance Due Date Last Done Comments Colon Cancer Screening-Colonoscopy 1955 Depression Screening 1955 Hepatitis C Screening 1955 Hepatitis B Screening 1972 Lung Cancer Screening 2004 Well Visit 65+ 2019 DTaP/Tdap/Td Vaccine (2 - Td or Tdap) 02/23/2021 02/23/2011 Fall Risk Assessment 03/09/2023 03/09/2022 Covid-19 Vaccine (2023-2 5 season) 2024 05/14/2021, 08/16/2020, 07/19/2020 Influenza Vaccine (#1) 2024 04/20/2023, 2020 Osteoporosis Screening-Bone Density Scan 11/11/2024 11/11/2022 Breast Cancer Screening-Mammogram 12/12/2024 12/13/2023, 04/14/2023, 12/07/2022, Additional history exists Zoster Vaccine Completed 01/08/2022, 09/18/2021 Pneumococcal vaccine 65+ Completed 04/20/2023 Medical Devices Implanted Type Area Senior Windows Systems Engineer Device Identifier Shelf Expiration Date Model / Serial / Lot Screw X2 Screw Left: Arm [employer] [place] 20ga 5cm Reposition J Curve Wire [employer] Stabilizer [id number] - [id number] Implanted:Qty: 1 on 03/09/2022 at [facility] Director [employer] [id number] 02/19/2027 [id number] / / [id number] Procedures Procedure Name Priority Date/Time Associated Diagnosis Comments US TRU Schedule Routine, Read Routine (OP Routine) 07/17/2024 9:36 AM HEAD SAMPLER Leg pain, anterior, right Other specified symptoms and signs involving the circulatory and respiratory systems EGFR Routine 07/07/2024 12:55 PM HEAD SAMPLER Malignant neoplasm of lower-outer quadrant of right breast of female, estrogen receptor positive (HCC) [facility] (current) use of aromatase inhibitors Vitamin D deficiency MANUAL DIFFERENTIAL Routine 07/07/2024 1 2:55 PM HEAD SAMPLER Malignant neoplasm of lower-outer quadrant of right breast of female, estrogen receptor positive (HCC) [facility] (current) use of aromatase inhibitors Vitamin D deficiency DIFFERENTIAL AUTO Routine 07/07/2024 12: 55 PM HEAD SAMPLER Malignant neoplasm of lower-outer quadrant of right breast of female, estrogen receptor positive (HCC) [facility] (current) use of aromatase inhibitors Vitamin D deficiency CBC WITH AUTO DIFFERENTIAL Routine 07/07/2024 12:55 PM HEAD SAMPLER Malignant neoplasm of lower-outer quadrant of right breast of female, estrogen receptor positive (HCC) [facility] (current) use of aromatase inhibitors Vitamin D deficiency COMPREHENSIVE METABOLIC PANEL Routine 07/07/2024 12:55 PM HEAD SAMPLER Malignant neoplasm of lower-outer quadrant of right breast of female, estrogen receptor positive (HCC) [facility] (current) use of aromatase inhibitors Vitamin D deficiency VITAMIN D 25 HYDROXY Routine 07/07/2024 12:55 PM HEAD SAMPLER Malignant neoplasm of lower-outer quadrant of right breast of female, estrogen receptor positive (HCC) 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) use of aromatase inhibitors Vitamin D deficiency DIAGNOSTIC MAMMOGRAM BILATERAL W MARK Schedule Routine, Read Routine (OP Routine) 12/13/2023 9:13 AM CDT Malignant neoplasm of lower-outer quadrant of right female breast, unspecified estrogen receptor status (HCC) DEXA AXIAL SKELETON BONE DENSITY 1 OR MORE SITES Schedule Routine, Read Routine (OP Routine) 11/11/2022 7:39 AM CDT Malignant neoplasm of lower-outer quadrant of right breast of female, estrogen receptor positive (CMS/HCC) (HCC) Age-related osteoporosis without current pathological fracture 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 INDICATIONS: M79.604 Pain in right leg and R09.89 Other specified symptoms and signs involving the circulatory and respiratory systems. HISTORY: current smoker, hypertention. MEASUREMENTS: Right Value Left Value Rt FAN BALANCER Pressure 173 mmHg Lt Brachial Pressure 145 mmHg Rt DPA Pressure 153 mmHg Lt FAN BALANCER Pressure 176 mmHg Rt 1st Digit Pressure 84 mmHg Lt DPA Pressure 141 mmHg Rt PT TRU Resting 1.19 Lt 1st Digit Pressure 89 mmHg Rt DP TUR Resting 1.06 Lt PT TRU Resting 1.21 Rt Digit/Arm Index 0.58 Lt DP TRU Resting 0.97 Lt Digit/Arm Index 0.61 FINDINGS: Right Posterior Tibial Artery Analysis: The posterior tibial waveform is multiphasic. Right Anterior Tibial Artery Analysis: The anterior tibial waveform is multiphasic. Right Digits: The right digit waveform is dampened. Left Posterior Tibial Artery Analysis: The posterior tibial waveform is multiphasic. Left Anterior Tibial Artery Analysis: The anterior tibial waveform is multiphasic. Left Digits: The left digit waveform is dampened. Comments: Right arm. Blood presure is not taken on the right arm due to h/o breast cancer. CONCLUSIONS: 1. Ankle-brachial index of 0.9-1.3 is within normal limits in the bilateral lower extremities. ATTESTATION: I have reviewed and interpreted the pertinent images and measurements of this study. I attest to the conclusions in the final report that is provided above. Electronically Signed By: Brent Mary MD 07/19/2024 12:57:02 PM HEAD SAMPLER Procedure Note Brent Mary MD - 07/19/2024 Lower Extremity Arterial Doppler Report Patient Name: VERO CASTRO LY : 1955 Study Date: 07/17/2024 9:00:00 AM Gender: F Shipfitter Apprentice: Jed Stone [address],rvt Ref Provider: WESLEY JONES Quality: Adequate Order Provider: WESLEY JONES PROCEDURES: Arterial Report: Ankle - Brachial Index Doppler exam. INDICATIONS: M79.604 Pain in right leg and R09.89 Other specified symptoms and signsinvolving the circulatory and respiratory systems. HISTORY: current smoker, hypertention. MEASUREMENTS: Right Value Left Value Rt FAN BALANCER Pressure 173 mmHg Lt Brachial Pressure 145 mmHg Rt DPA Pressure 153 mmHg Lt FAN BALANCER Pressure 176 mmHg Rt 1st Digit Pressure 84 mmHg Lt DPA Pressure 141 mmHg Rt PT TRU Resting 1.19 Lt 1st Digit Pressure 89 mmHg Rt DP TRU Resting 1.06 Lt PT TRU Resting 1.21 Rt Digit/Arm Index 0.58 Lt DP TRU Resting 0.97 Lt Digit/Arm Index 0.61 FINDINGS: Right Posterior Tibial Artery Analysis: The posterior tibial waveform is multiphasic. Right Anterior Tibial Artery Analysis: The anterior tibial waveform is multiphasic. Right Digits: The right digit waveform is dampened. Left Posterior Tibial Artery Analysis: The posterior tibial waveform is multiphasic. Left Anterior Tibial Artery Analysis: The anterior tibial waveform is multiphasic. Left Digits: The left digit waveform is dampened. Comments: Right arm. Blood presure is not taken on the right arm due to h/o breastcancer. CONCLUSIONS: 1. Ankle-brachial index of 0.9-1.3 is within normal limits in thebilateral lower extremities. ATTESTATION: I have reviewed and interpreted the pertinent images and measurements ofthis study. I attest to the conclusions in the final report that is provided above. Electronically Signed By: Brent Mary MD 07/19/2024 12:57:02 PM HEAD SAMPLER Wesley Jones NP IMG US PROCEDURES Fi nal Result * eGFR (07/07/2024 12:55 PM HEAD SAMPLER) eGFR >90 >=60 mL/min/1. 73 m2 Comment: Interpretive Data Reference Interval Normal >/= 90 mL/min/1.73m2 Mildly decreased* 60 - 89 mL/min/1.73m2 Mildly to moderately decreased 45 - 59 mL/min/1.73m2 Moderately to severely decreased 30 - 44 mL/min/1.73m2 Severely decreased 15 - 29 mL/min/1.73m2 Kidney Failure < 15 mL/min/1.73m2 *Relative to young adult level Estimated glomerular filtration rate is determined by the 2020 CKD-EPI equation recommended by the National Kidney Foundation (A Unifying Approach to GFR Estimation: Recommendations of the NKF-ASK Task Force on Reassessing the Inclusion of Race in Diagnosing Kidney Disease, JASN 2020). The CKD-EPI equation should not be used for patients with unstable renal function and has not been validated in children and those over 70. Current interpretive data was last reviewed 2021. Testing performed by: [address] [address] Blood 07/07/2024 12:5 5 PM HEAD SAMPLER 07/07/2024 1:00 PM HEAD SAMPLER Wesley Jones NP LAB BLOOD ORDERABLES Final Result [facility] [id number] [facility] Department [place] [address] * (ABNORMAL) Differential, auto (07/07/2024 12:55 PM HEAD SAMPLER) Neutrophil abs 8.2(H) 1.5 - 6.5 K/cumm Comment:Testing performed by : [address] [address] Imm gran abs 0.0 0.0 - 0.1 K/cumm [facility] Comment:Testing performed by : [address] [address] Lymphocyte abs 1.9 0.8 - 3.3 K/cumm [facility] Comment:Testing performed by : [address] [address] Monocyte abs 1.0(H) 0.2 - 0.8 K/cumm [facility] Comment:Testing performed by : [address], [place]., [address] Eosinophil abs 0.1 0.0 - 0.5 K/cumm [facility] Comment:Testing performed by : [address], [place]., [address] Basophil abs 0.1 0.0 - 0.1 K/cumm [facility] Comment:Testing performed by : [address] [address] Neutrophil pct 72.8 % [facility] Comment: Interpretive Data Percent cell count reference ranges are not reported, since discordance with absolute values may lead to misinterpretation of CBC data. Current Interpretive Data was last revised on 2017. Testing performed by: [address] [address] Imm gran pct 0.4 % [facility] Comment: Interpretive Data Percent cell count reference ranges are not reported, since discordance with absolute values may lead to misinterpretation of CBC data. Current Interpretive Data was last revised on 2017. Testing performed by: [address] [address] Lymphocyte pct 16.5 % [facility] Comment: Interpretive Data Percent cell count reference ranges are not reported, since discordance with absolute values may lead to misinterpretation of CBC data. Current Interpretive Data was last revised on 2017. Testing performed by: [address] [address] Monocyte pct 8.9 % [facility] Comment: Interpretive Data Percent cell count reference ranges are not reported, since discordance with absolute values may lead to misinterpretation of CBC data. Current Interpretive Data was last revised on 2017. Testing performed by: [address] [address] Eosinophil pct 1.0 % [facility] Comment: Interpretive Data Percent cell count reference ranges are not reported, since discordance with absolute values may lead to misinterpretation of CBC data. Current Interpretive Data was last revised on 2017. Testing performed by: [address] [address] Basophil pct 0.4 % [facility] Comment: Interpretive Data Percent cell count reference ranges are not reported, since discordance with absolute values may lead to misinterpretation of CBC data. Current Interpretive Data was last revised on 2017. Testing performed by: [address] [address] Blood 07/07/2024 12:5 5 PM HEAD SAMPLER 07/07/2024 1:00 PM HEAD SAMPLER Wesley Jones FROTHING MACHINE OPERATOR LAB BLOOD ORDERABLES Final Result [facility] [address] [facility] Department [place] [address] * (ABNORMAL) CBC with auto differential (07/07/2024 12:55 PM HEAD SAMPLER) WBC 11.3(H) 3.8 - 9.9 K/cumm Comment:Testing performed by : [address] [address] Hgb 13.5 11.9 - 15.5 g/dL [facility] Comment:Testing performed by : [address] [address] Hct 39.5 35.6 - 45.5 % [facility] Comment:Testing performed by : [address] [address] Plt 261 150 - 400 K/cumm [facility] Comment:Testing performed by : [address] [address] MPV 12.2 9.1 - 12.3 fL [facility] Comment:Testing performed by : [address] [address] RBC 4.39 3.90 - 5.20 M/cumm [facility] Comment:Testing performed by : [address] [address] MCV 90.0 81.3 - 96.4 fL [facility] Comment:Testing performed by : [address] [address] MCH 30.8 27.1 - 33.3 pg [facility] Comment:Testing performed by : [address] [address] MCHC 34.2 32.3 - 35.7 g/dL [facility] Comment:Testing performed by : [address] [address] RDW CV 13.5 11.1 - 14.9 % [facility] Comment:Testing performed by : [address], [address] RDW SD 44.5 35.7 - 48.1 fL [facility] Comment:Testing performed by : [address] [address] NRBC abs 0.00 0.00 - 0.01 K/cumm [facility] Comment:Testing performed by : [address], [address] Blood 07/07/2024 12:5 5 PM HEAD SAMPLER 07/07/2024 1:00 PM HEAD SAMPLER Wesley Jones NP LAB BLOOD ORDERABLES Final Result Performing Organization Address [facility] Co de Phone Number [address] [employer] [address] * Vitamin D 25 hydroxy (07/07/2024 12:55 PM HEAD SAMPLER) Pathologist [facility] Vitamin D 25-OH 63.0 30.0 - 80.0 ng/mL Blood 07/07/2024 12:5 5 PM HEAD SAMPLER 07/07/2024 2:31 PM HEAD SAMPLER Wesley Jones NP LAB BLOOD ORDERABLES Final Result Performing Organization Address [facility] Co de Phone Number [place] [phone] [facility] [email or web address] [address] * (ABNORMAL) Manual Differential (07/07/2024 12:55 PM HEAD SAMPLER) Differential Auto Comment:Testing performed by : [address] [address] Neutrophil abs 8.2(H) 1.5 - 6.5 K/cumm [facility] Comment:Testing performed by : [address] [address] Imm gran abs 0.0 0.0 - 0.1 K/cumm [facility] Comment:Testing performed by : [address] [address] Lymphocyte abs 1.9 0.8 - 3.3 K/cumm [facility] Comment:Testing performed by : [address] [address] Monocyte abs 1.0(H) 0.2 - 0.8 K/cumm [facility] Comment:Testing performed by : [address] [address] Eosinophil abs 0.1 0.0 - 0.5 K/cumm [facility] Comment:Testing performed by : [address] [address] Basophil abs 0.1 0.0 - 0.1 K/cumm [facility] Comment:Testing performed by : [address] [address] Neutrophil pct 72.8 % [facility] Comment: Interpretive Data Percent cell count reference ranges are not reported, since discordance with absolute values may lead to misinterpretation of CBC data. Current Interpretive Data was last revised on 2017. Testing performed by: [address] [address] Imm gran pct 0.4 % [facility] Comment: Interpretive Data Percent cell count reference ranges are not reported, since discordance with absolute values may lead to misinterpretation of CBC data. Current Interpretive Data was last revised on 2017. Testing performed by: [address] [address] Lymphocyte pct 16.5 % [facility] Comment: Interpretive Data Percent cell count reference ranges are not reported, since discordance with absolute values may lead to misinterpretation of CBC data. Current Interpretive Data was last revised on 2017. Testing performed by: [address] [address] Monocyte pct 8.9 % [facility] Comment: Interpretive Data Percent cell count reference ranges are not reported, since discordance with absolute values may lead to misinterpretation of CBC data. Current Interpretive Data was last revised on 2017. Testing performed by: [address] [address] Eosinophil pct 1.0 % [facility] Comment: Interpretive Data Percent cell count reference ranges are not reported, since discordance with absolute values may lead to misinterpretation of CBC data. Current Interpretive Data was last revised on 2017. Testing performed by: [address] [address] Basophil pct 0.4 % [facility] Comment: Interpretive Data Percent cell count reference ranges are not reported, since discordance with absolute values may lead to misinterpretation of CBC data. Current Interpretive Data was last revised on 2017. Testing performed by: [address] [address] RBC morphology Consistent with RBC Indicies [facility] Comment:Testing performed by : [address] [address] Platelet estimate Adequate [facility] Comment:Testing performed by : [address] [address] Blood 07/07/2024 12:5 5 PM HEAD SAMPLER 07/07/2024 1:00 PM HEAD SAMPLER us Wesley Jones FROTHING MACHINE OPERATOR LAB BLOOD ORDERABLES Final Result [facility] [address] [facility] Department of Laboratories [place], [place] [id number] * Comprehensive metabolic panel (07/07/2024 12:55 PM HEAD SAMPLER) Sodium 138 135 - 145 mmol/L Comment:Testing performed by : [address] [address] Potassium, pl 3.9 3.3 - 4.9 mmol/L [facility] Comment:Testing performed by : [address] [address] Chloride 98 97 - 110 mmol/L [facility] Comment:Testing performed by : [address], [place]., [address] CO2 31 22 - 32 mmol/L [facility] Comment:Testing performed by : [address], [place]., [address] Anion gap 9 2 - 15 mmol/L [facility] Comment:Testing performed by : [address], [place]., [address] BUN 12 6 - 25 mg/dL [facility] Comment:Testing performed by : [address], [place]., [address] Creatinine 0.60 0.60 - 1.10 mg/dL [facility] Comment:Testing performed by : [address] [address] Glucose 98 70 - 199 mg/dL [facility] Comment: Interpretive Data Fasting glucose >/= 126 mg/dl is diagnostic for diabetes. Fasting is defined as no caloric intake for at least 8 hours. Fasting glucose between 100 mg/dl to 125 mg/dl is diagnostic of prediabetes. In a patient with classic symptoms of hyperglycemia or hyperglycemic crisis, a random glucose >/= 200 mg/dl is diagnostic for diabetes. In the absence of unequivocal hyperglycemia, results should be confirmed by repeat testing. The classification and Diagnosis of Diabetes Diabetes Care 202; 46: S19-S40. Current interpretive data was last revised 2022. Testing performed by: [address] [address] Calcium 10.1 8.5 - 10.3 mg/dL [facility] Comment:Testing performed by : [address] [address] Bilirubin, total 0.3 0.1 - 1.2 mg/dL [facility] Comment:Testing performed by : [address], [place]., [address] Protein, pl 7.1 6.5 - 8.5 g/dL [facility] Comment:Testing performed by : [address] [address] Albumin 4.2 3.5 - 5.0 g/dL [facility] Comment:Testing performed by : [address] [address] Alk phos 98 40 - 130 Units/L [facility] Comment:Testing performed by : [address] [address] ALT 17 7 - 45 Units/L [facility] Comment:Testing performed by : [address] [address] AST 39 10 - 45 Units/L [facility] Comment:Testing performed by : [address] [address] Blood 07/07/2024 12:5 5 PM HEAD SAMPLER 07/07/2024 1:00 PM HEAD SAMPLER Wesley Jones FROTHING MACHINE OPERATOR LAB BLOOD ORDERABLES Final Result Performing Organization Address City/State/[facility] Co de Phone Number [facility] [id number] [facility] Department [place] [address] * Diagnostic Mammogram Bilateral W Makr (12/13/2023 9:13 AM CDT) Anatomical Region Laterality Modality Breast Bilateral Mammography 12/13/2023 9:24 AM CDT Narrative 12/13/2023 9:26 AM CDT EXAM DESCRIPTION: DIAGNOSTIC MAMMOGRAM BILATERAL W MARK REASON FOR STUDY: 68-year-old woman with personal history of right breast cancer status post breast conservation therapy in March 2022. She comes in today for follow-up of the right breast, and routine annual screening of the left breast. COMPARISON: 12/07/2022, 03/09/2022, 01/29/2022, 11/25/2021, 10/13/2021. TECHNIQUE: CC and MLO digital breast tomosynthesis of both breasts with C view was performed. FINDINGS: DENSITY: The breasts are heterogeneously dense, which may obscure small masses. Expected postoperative changes of breast conservation therapy identified in the right breast. There also surgical clips in the right axilla. Mild trabecular thickening and skin thickening of the right breast, in keeping with post treatment changes. This is similar to the previous examination. No new suspicious findings are identified in either breast on mammogram. IMPRESSION: Expected postoperative and post treatment changes in the right breast/right axilla. There are no new suspicious findings in either breast. Continued monthly breast self-examination and clinical follow-up is recommended, and imaging follow-up with bilateral diagnostic mammogram in 12 months per [facility] protocol. BIRADS: 2 - Benign The patient was notified of the results at the time of the examination. THIS IS AN ELECTRONICALLY VERIFIED FINAL REPORT 12/13/2023 9:26 AM - Electronically signed by Bib Huddleston M.D. RL: MELISSA Report ID: [id number] Reading Location: [facility] Christopher French MD IM MAMMO PROCEDURES Final Res ult * Dexa Axial Skeleton Bone Density 1 or 2 Site (11/11/2022 7:39 AM CDT) Anatomical Region Laterality Modality Body N/A Mammography 11/12/2022 12:5 0 AM CDT Narrative 11/12/2022 12:51 AM CDT EXAM DESCRIPTION: DEXA AXIAL SKELETON BONE DENSITY 1 OR MORE SITES REASON FOR STUDY: 67 y/o year old F with given history of screening. 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 REFERENCE: Bone mineral density: Normal (T-score above or = -1.0) Low bone mass (T-score between -1.0 and -2.5) replaces the previously used term osteopenia Osteoporosis (T-score = or below -2.5) Medical evaluation for secondary causes of low bone mineral density may be appropriate. FRAX is a World Health Organization validated fracture risk assessment tool that calculates a person's 10 year probability of a major osteoporosis related fracture and hip fracture. According to the National Osteoporosis Foundation guidelines, postmenopausal women and men age 50 or older with low bone mass and a 10 year probability of a major osteoporosis related fracture = or greater than 20% or a 10 year probability of a hip fracture = or greater than 3% should be considered for treatment. For further information, including treatment recommendations, please refer to the 2019 ISCD Official Positions (http://www.iscd.org) and the NOF's Clinician's Guide to Prevention and Treatment of Osteoporosis (http://www.nof.org/professionals/clinical-guidelines) THIS IS AN ELECTRONICALLY VERIFIED FINAL REPORT 11/12/2022 12:51 AM - Electronically signed by Christopher Marquez M.D. MF: REGINE Report ID: [id number] Reading Location: [address] Note Christopher Marquez MD - 11/12/2022 EXAM DESCRIPTION: DEXA AXIAL SKELETON BONE DENSITY 1 OR MORE SITES REASON FOR STUDY: 67 y/o year old F with given history of screening. 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 REFERENCE: Bone mineral density: Normal (T-score above or = -1.0) Low bone mass (T-score between -1.0 and -2.5) replaces thepreviously used term osteopenia Osteoporosis (T-score = or below -2.5) Medical evaluation for secondary causes of low bone mineral density may be appropriate. FRAX is a World Health Organization validated fracture risk assessmenttool that calculates a person's 10 year probability of a major osteoporosisrelated fracture and hip fracture. According to the National OsteoporosisFoundation guidelines, postmenopausal women and men age 50 or older with low bonemass and a 10 year probability of a major osteoporosis related fracture = or greater than 20% or a 10 year probability of a hip fracture = or greaterthan 3% should be considered for treatment. For further information, including treatment recommendations, please referto the 2019 ISCD Official Positions (http://www.iscd.org) and the NOF's Clinician's Guide to Prevention and Treatment of Osteoporosis (http://www.nof.org/professionals/clinical-guidelines) THIS IS AN ELECTRONICALLY VERIFIED FINAL REPORT 11/12/2022 12:51 AM - Electronically signed by Christopher Marquez M.D. 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
--- OUTSIDE RECORDS SUMMARY | 2024-08-29 18:28 | XMS_ITS | Referral Summary ---
Author Organization [facility] Medical Office Building 1 Address [address] [place] [address] Care Team Providers Care Emergency Planning And Response Manager Name Role Phone Jono Phillips MD Primary Care Provider [phone] Christopher French MD Unavailable [phone] Radha Hamm MD Unavailable [phone] Encounters Date Type Department Care Team Description 07/19/2024 Telephone [facility] [address] [place] [phone] Eboni Madrigal RN 07/17/2024 8:51 AM [employer] - 07/17/2024 11:59 PM [employer] DRIVER Hospital Encounter [facility]iac Testing [address] [place] [address] Leg pain, anterior, right; Other specified symptoms and signs involving the circulatory and respiratory systems Discharge Disposition: Discharge to home or self care 07/10/2024 Orders Only [facility] [address] [place] [address] [address] [place] [phone] Kym Avendano, JAZMINE Leg pain, anterior, right (Primary Dx) 07/10/2024 Orders Only [facility] [address] [place] [address] [address] [place] [phone] Wesley Jones NP 07/07/2024 12:45 PM [employer]IVER Lab [facility] at [address] [phone] Malignant neoplasm of lower-outer quadrant of right breast of female, estrogen receptor positive (HCC); group home (current) use of aromatase inhibitors; Vitamin D deficiency 07/07/2024 1:30 PM [employer] Office Visit [facility] [address] [place] [phone] Wesley Jones NP Malignant neoplasm of lower-outer quadrant of right breast of female, estrogen receptor positive (HCC) (Primary Dx); Encounter for osteoporosis screening in asymptomatic postmenopausal patient; Use of anastrozole; Vitamin D deficiency; Leg pain, anterior, right; Arterial occlusion, lower extremity; Low bone mass 07/03/2024 Orders Only [facility] [address] [place] [phone] Eboni Madrigal, RN Malignant neoplasm of lower-outer quadrant of right breast of female, estrogen receptor positive (HCC) (Primary Dx) from Last 3 Months Allergies Active Allergy Reactions Criticality Noted Date [...] down for 30 minutes. 6 tablet 07/07/2024 5 Active Active Problems Problem Noted Date Diagnosed Date Personal history of radiation therapy 05/26/2022 Malignant neoplasm of lower- outer quadrant of right breast of female, estrogen receptor positive 02/23/2022 Cancer Staging:Clinical stage from 02/25/2022:Stage IA(cT1, cN0(f), cM0, G2, ER+, VT+, HER2-) - Signed by Radha Hamm MD on 02/25/2022 Pathologic stage from 03/20/2022:Stage IA(pT1b, pN0(sn), cM0, G2, ER+, VT+, HER2-) - Signed by Radha Hamm MD on 03/20/2022 Social History Tobacco Use Types Packs/Day Years [...] on file Legal Sex Female 7:55 PM [employer] DR[employer] Gender Identity Not on file Sexual Orientation Not on file Occupation Industry Job Start Date Job End 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 Not on file Not on file Not on file Last Filed Vital Signs Vital Sign Reading Time Taken Comments Blood Pressure 135/82 07/07/2024 1:05 PM [employer] Pulse 85 07/07/2024 1:05 PM [employer] Temperature 36.2 C (97.1 F) 07/07/2024 1:05 PM [employer]IVER Respiratory Rate 18 07/07/2024 1:05 PM [employer] DRIVER Oxygen Saturation 99% 07/07/2024 1:05 PM [employer] DRIVER Inhaled Oxygen Concentration - - Weight 71.7 kg (158 lb) 07/07/2024 1:05 PM [employer] Height 162.6 cm (5' 4 ) 07/07/2024 1:05 PM [employer] Body Mass Index 27.12 07/07/2024 1:05 PM [employer] DRIVER Plan of Treatment Not on file Medical Devices Implanted Type Area Ginning Operator Device Identifier Shelf Expiration Date Model / Serial / Lot Screw X2 Screw Left: Arm [employer] [place] 20ga 5cm Reposition J Curve Wire [employer] Koffi Stabilizer [id number] - [id number] Implanted:Qty: 1 on 03/09/2022 at [facility] [employer] [id number] 02/19/2027 [id number] / / [id number] Procedures Procedure Name Priority Date/Time Associated Diagnosis Comments US TRU Schedule Routine, Read Routine (OP Routine) 07/17/2024 9:36 AM [employer] Leg pain, anterior, right Other specified symptoms and signs involving the circulatory and respiratory systems EGFR Routine 07/07/2024 12:55 PM [employer]IVER Malignant neoplasm of lower-outer quadrant of right breast of female, estrogen receptor positive (HCC) 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 Vitamin D deficiency MANUAL DIFFERENTIAL Routine 07/07/2024 1 2:55 PM [employer] DRIVER Malignant neoplasm of lower-outer quadrant of right breast of female, estrogen receptor positive (HCC) 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 Vitamin D deficiency DIFFERENTIAL AUTO Routine 07/07/2024 12: 55 PM [employer]IVER Malignant neoplasm of lower-outer quadrant of right breast of female, estrogen receptor positive (HCC) 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 Vitamin D deficiency CBC WITH AUTO DIFFERENTIAL Routine 07/07/2024 12:55 PM [employer] DRIVER Malignant neoplasm of lower-outer quadrant of right breast of female, estrogen receptor positive (HCC) group home (current) use of aromatase inhibitors Vitamin D deficiency COMPREHENSIVE METABOLIC PANEL Routine 07/07/2024 12:55 PM [employer] DRIVER Malignant neoplasm of lower-outer quadrant of right breast of female, estrogen receptor positive (HCC) group home (current) use of aromatase inhibitors Vitamin D deficiency VITAMIN D 25 HYDROXY Routine 07/07/2024 12:55 PM [employer] DRIVER Malignant neoplasm of lower-outer quadrant of right breast of female, estrogen receptor positive (HCC) group home (current) use of aromatase inhibitors Vitamin D [...] (HCC) Age-related osteoporosis without current pathological fracture group home (current) use of aromatase inhibitors from Last 3 Months or Most Recently Relevant to Health Maintenance Results * US TRU (07/17/2024 9:36 AM [employer] DRIVER) Anatomical Region Laterality Modality Vascular N/A Ultrasound 07/17/2024 9:00 AM [employer] DRIVER Narrative 07/19/2024 12:57 PM [employer] DRIVER Lower Extremity Arterial Doppler Report Patient Name: VERO CASTRO LY : 1955 Study Date: 07/17/2024 9:00:00 AM Gender: F Hotel Lobby Concierge: Jed Stone Rdms, rvt Ref Provider: WESLEY JONES Quality: Adequate Order Provider: WESLEY JONES PROCEDURES: Arterial Report: Ankle - Brachial Index Doppler exam. INDICATIONS: M79.604 Pain in right leg and R09.89 Other specified symptoms and signs involving the circulatory and respiratory systems. HISTORY: current smoker, hypertention. MEASUREMENTS: Right Value Left Value Rt TRANSPORTATION MECHANIC Pressure 173 mmHg Lt Brachial Pressure 145 mmHg Rt DPA Pressure 153 mmHg Lt TRANSPORTATION MECHANIC Pressure 176 mmHg Rt 1st Digit Pressure [...] By: Brent Mary MD 07/19/2024 12:57:02 PM [employer] DRIVER Procedure Note Brent Mary MD - 07/19/2024 Lower Extremity Arterial Doppler Report Patient Name: VERO CASTRO LY : 1955 Study Date: 07/17/2024 9:00:00 AM Gender: F Hotel Lobby Concierge: Jed Stone Rdms,rvt Ref Provider: WESLEY JONES Quality: Adequate Order Provider: WESLEY JONES PROCEDURES: Arterial Report: Ankle - Brachial Index Doppler exam. INDICATIONS: M79.604 Pain in right leg and R09.89 Other specified symptoms and signsinvolving the circulatory and respiratory systems. HISTORY: current smoker, hypertention. MEASUREMENTS: Right Value Left Value Rt TRANSPORTATION MECHANIC Pressure 173 mmHg Lt Brachial Pressure 145 mmHg Rt DPA Pressure 153 mmHg Lt TRANSPORTATION MECHANIC Pressure 176 mmHg Rt 1st Digit Pressure [...] By: Brent Mary MD 07/19/2024 12:57:02 PM [employer] DRIVER Wesley Jones NP IMG US PROCEDURES Fi nal Result * eGFR (07/07/2024 12:55 PM [employer] DRIVER) eGFR >90 >=60 mL/min/1. 73 m2 Comment: [...] was last reviewed 2021. Testing performed by: [address] [address] Blood 07/07/2024 12:5 5 PM [employer] DRIVER 07/07/2024 1:00 PM [employer] DRIVER Wesley Jones NP LAB BLOOD ORDERABLES Final Result [facility] [address] [facility] Department [place] [address] * (ABNORMAL) Differential, auto (07/07/2024 12:55 PM [employer] DRIVER) Pathologist [facility] Neutrophil abs 8.2(H) 1.5 - 6.5 K/cumm Comment:Testing performed by : [address] [address] Imm gran abs 0.0 0.0 - 0.1 K/cumm [facility] Comment:Testing performed by : [address] [address] Lymphocyte abs 1.9 0.8 - 3.3 K/cumm [facility] Comment:Testing performed by : [address] [address] Monocyte abs 1.0(H) 0.2 - 0.8 K/cumm [facility] Comment:Testing performed by : [address], [place]., [address] Eosinophil abs 0.1 0.0 - 0.5 K/cumm [facility] Comment:Testing performed by : [address], [place]., [address] Basophil abs 0.1 0.0 - 0.1 K/cumm [facility] Comment:Testing performed by : [address] [address] Neutrophil pct 72.8 % [facility] Comment: Interpretive Data Percent cell count reference ranges are not reported, since discordance with absolute values may lead to misinterpretation of CBC data. Current Interpretive Data was last revised on 2017. Testing performed by: [address] [address] Imm gran pct 0.4 % [facility] Comment: Interpretive Data Percent cell count reference ranges are not reported, since discordance with absolute values may lead to misinterpretation of CBC data. Current Interpretive Data was last revised on 2017. Testing performed by: [address] [address] Lymphocyte pct 16.5 % [facility] Comment: Interpretive Data Percent cell count reference ranges are not reported, since discordance with absolute values may lead to misinterpretation of CBC data. Current Interpretive Data was last revised on 2017. Testing performed by: [address] [address] Monocyte pct 8.9 % [facility] Comment: Interpretive Data Percent cell count reference ranges are not reported, since discordance with absolute values may lead to misinterpretation of CBC data. Current Interpretive Data was last revised on 2017. Testing performed by: [address] [address] Eosinophil pct 1.0 % [facility] Comment: Interpretive Data Percent cell count reference ranges are not reported, since discordance with absolute values may lead to misinterpretation of CBC data. Current Interpretive Data was last revised on 2017. Testing performed by: [address] [address] Basophil pct 0.4 % [facility] Comment: Interpretive Data Percent cell count reference ranges are not reported, since discordance with absolute values may lead to misinterpretation of CBC data. Current Interpretive Data was last revised on 2017. Testing performed by: [address] [address] Blood 07/07/2024 12:5 5 PM [employer] T[employer]ER DRIVER 07/07/2024 1:00 PM [employer] TANKER DRIVER Wesley Jones MANAGER FORENSIC LAB BLOOD ORDERABLES Final Result [facility] Department [place] [address] * (ABNORMAL) CBC with auto differential (07/07/2024 12:55 PM [employer] DRIVER) WBC 11.3(H) 3.8 - 9.9 K/cumm Comment:Testing performed by : [address] [address] Hgb 13.5 11.9 - 15.5 g/dL [facility] Comment:Testing performed by : [address] [address] Hct 39.5 35.6 - 45.5 % [facility] Comment:Testing performed by : [address] [address] Plt 261 150 - 400 K/cumm [facility] Comment:Testing performed by : [address] [address] MPV 12.2 9.1 - 12.3 fL [facility] Comment:Testing performed by : [address] [address] RBC 4.39 3.90 - 5.20 M/cumm [facility] Comment:Testing performed by : [address] [address] MCV 90.0 81.3 - 96.4 fL [facility] Comment:Testing performed by : [address] [address] MCH 30.8 27.1 - 33.3 pg [facility] Comment:Testing performed by : [address] [address] MCHC 34.2 32.3 - 35.7 g/dL [facility] Comment:Testing performed by : [address] [address] RDW CV 13.5 11.1 - 14.9 % [facility] Comment:Testing performed by : [address], [address] RDW SD 44.5 35.7 - 48.1 fL [facility] Comment:Testing performed by : [address] [address] NRBC abs 0.00 0.00 - 0.01 K/cumm [facility] Comment:Testing performed by : [address], [address] Blood 07/07/2024 12:5 5 PM [employer] DRIVER 07/07/2024 1:00 PM [employer] T[employer] DRIVER Wesley Jones NP LAB BLOOD ORDERABLES Final Result Performing Organization Address [facility] Co de Phone Number [place] [phone] [facility] [place] [address] * Vitamin D 25 hydroxy (07/07/2024 12:55 PM [employer] DRIVER) Vitamin D 25-OH 63.0 30.0 - 80.0 ng/mL Blood 07/07/2024 12:5 5 PM [employer] T[employer] DRIVER 07/07/2024 2:31 PM [employer] T[employer]ER DRIVER Wesley Jones NP LAB BLOOD ORDERABLES Final Result Performing Organization Address [facility] Co de Phone Number [facility] [place] [address] * (ABNORMAL) Manual Differential (07/07/2024 12:55 PM [employer] DRIVER) Differential Auto Comment:Testing performed by : [address] [address] Neutrophil abs 8.2(H) 1.5 - 6.5 K/cumm [facility] Comment:Testing performed by : [address] [address] Imm gran abs 0.0 0.0 - 0.1 K/cumm [facility] Comment:Testing performed by : [address] [address] Lymphocyte abs 1.9 0.8 - 3.3 K/cumm [facility] Comment:Testing performed by : [address] [address] Monocyte abs 1.0(H) 0.2 - 0.8 K/cumm [facility] Comment:Testing performed by : [address] [address] Eosinophil abs 0.1 0.0 - 0.5 K/cumm [facility] Comment:Testing performed by : [address] [address] Basophil abs 0.1 0.0 - 0.1 K/cumm [facility] Comment:Testing performed by : [address] [address] Neutrophil pct 72.8 % [facility] Comment: Interpretive Data Percent cell count reference ranges are not reported, since discordance with absolute values may lead to misinterpretation of CBC data. Current Interpretive Data was last revised on 2017. Testing performed by: [address] [address] Imm gran pct 0.4 % [facility] Comment: Interpretive Data Percent cell count reference ranges are not reported, since discordance with absolute values may lead to misinterpretation of CBC data. Current Interpretive Data was last revised on 2017. Testing performed by: [address] [address] Lymphocyte pct 16.5 % [facility] Comment: Interpretive Data Percent cell count reference ranges are not reported, since discordance with absolute values may lead to misinterpretation of CBC data. Current Interpretive Data was last revised on 2017. Testing performed by: [address] [address] Monocyte pct 8.9 % [facility] Comment: Interpretive Data Percent cell count reference ranges are not reported, since discordance with absolute values may lead to misinterpretation of CBC data. Current Interpretive Data was last revised on 2017. Testing performed by: [address] [address] Eosinophil pct 1.0 % [facility] Comment: Interpretive Data Percent cell count reference ranges are not reported, since discordance with absolute values may lead to misinterpretation of CBC data. Current Interpretive Data was last revised on 2017. Testing performed by: [address] [address] Basophil pct 0.4 % [facility] Comment: Interpretive Data Percent cell count reference ranges are not reported, since discordance with absolute values may lead to misinterpretation of CBC data. Current Interpretive Data was last revised on 2017. Testing performed by: [address] [address] RBC morphology Consistent with RBC Indicies [facility] Comment:Testing performed by : [address] [address] Platelet estimate Adequate [facility] Comment:Testing performed by : [address] [address] Blood 07/07/2024 12:5 5 PM [employer] DRIVER 07/07/2024 1:00 PM [employer] T[employer] DRIVER us Wesley Jones MANAGER FORENSIC LAB BLOOD ORDERABLES Final Result [facility] [address] [facility] Department [place] [address] * Comprehensive metabolic panel (07/07/2024 12:55 PM [employer] DRIVER) Sodium 138 135 - 145 mmol/L Comment:Testing performed by : [address] [address] Potassium, pl 3.9 3.3 - 4.9 mmol/L [facility] Comment:Testing performed by : [address], [place]., [address] Chloride 98 97 - 110 mmol/L [facility] Comment:Testing performed by : [address], [place]., [address] CO2 31 22 - 32 mmol/L [facility] Comment:Testing performed by : [address], [place]., [address] Anion gap 9 2 - 15 mmol/L [facility] Comment:Testing performed by : [address], [place]., [address] BUN 12 6 - 25 mg/dL [facility] Comment:Testing performed by : [address], [place]., [address] Creatinine 0.60 0.60 - 1.10 mg/dL [facility] Comment:Testing performed by : [address] [address] Glucose 98 70 - 199 mg/dL [facility] Comment: Interpretive Data Fasting glucose >/= 126 [...] was last revised 2022. Testing performed by: [address] [address] Calcium 10.1 8.5 - 10.3 mg/dL [facility] Comment:Testing performed by : [address] [address] Bilirubin, total 0.3 0.1 - 1.2 mg/dL [facility] Comment:Testing performed by : [address] [address] Protein, pl 7.1 6.5 - 8.5 g/dL [facility] Comment:Testing performed by : [address] [address] Albumin 4.2 3.5 - 5.0 g/dL [facility] Comment:Testing performed by : [address] [address] Alk phos 98 40 - 130 Units/L [facility] Comment:Testing performed by : [address] [address] ALT 17 7 - 45 Units/L [facility] Comment:Testing performed by : [address] [address] AST 39 10 - 45 Units/L [facility] Comment:Testing performed by : [address] [address] Blood 07/07/2024 12:5 5 PM [employer] T[employer] DRIVER 07/07/2024 1:00 PM [employer] TANKER DRIVER Wesley Jones MANAGER FORENSIC LAB BLOOD ORDERABLES Final Result Performing Organization Address City/State/[facility] Co de Phone Number [facility] [address] [facility] Department [place] [address] * Diagnostic Mammogram Bilateral W Mark (12/13/2023 9:13 AM CDT) Anatomical Region Laterality [...] bilateral diagnostic mammogram in 12 months per [facility] protocol. BIRADS: 2 - Benign The patient was notified of the results at the time of the examination. THIS IS AN ELECTRONICALLY VERIFIED FINAL REPORT 12/13/2023 9:26 AM - Electronically signed by Bib Huddleston M.D. RL: MELISSA Report ID: [id number] Reading Location: [facility] Christopher French MD IMG MAMMO PROCEDURES Final Res ult * Dexa Axial Skeleton Bone Density 1 or 2 Site (11/11/2022 7:39 AM CDT) Anatomical Region Laterality Modality Body N/A Mammography 11/12/2022 12:5 0 AM CDT Narrative 11/12/2022 12:51 AM CDT EXAM DESCRIPTION: DEXA AXIAL SKELETON BONE DENSITY 1 OR MORE SITES REASON FOR STUDY: 67 y/o year old F with given history of screening. 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 MF: REGINE Report ID: [id number] Reading Location: [id number] [facility] Note Christopher Marquez MD - 11/12/2022 EXAM DESCRIPTION: DEXA AXIAL SKELETON BONE DENSITY 1 OR MORE SITES REASON FOR STUDY: 67 y/o year old F with given history of screening. Postmenopausal Ginning Operator/Model: [employer] A (S/N [id number]) CLINICAL INFORMATION: Current height: 63 inches Maximum [...] Christopher Marquez M.D. MF: REGINE Report ID: [id number] Reading Location: [place] [address] Devin Lewis DO IM DXA PROCEDURES Final Res ult from Last 3 Months or Most Recently Relevant to Health Maintenance Insurance [employer] [facility] MEDICARE ADVANTAGE [facility] MEDICARE ADVANTAGE MEDICARE IDPA Care Teams Emergency Planning And Response Manager Relationship Specialty Start Date End Date Jono Phillips MD [address] [facility] [address] [place] [address] PCP - General Internal Medicine 01/29/22 Christopher French MD [facility] [address] [place], [place] [id number] Surgeon General Surgery 01/29/22 Radha Hamm MD [address] [place] [address] [address] [place], [place] [id number] Radiation Oncologist Radiation Oncology 02/01/24
--- OUTSIDE RECORDS SUMMARY | 2024-08-29 18:28 | XMS_ITS | Clinical Summary ---
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 - 06/13/2024 11:59 PM SCHOOL BUS ATTENDANT Hospital Encounter [place] [address] Jono Baca MD Discharge Disposition: Home or [...] LUNG SCREENING Routine 06/13/2024 8:2 2 AM SCHOOL BUS ATTENDANT Nicotine dependence, cigarettes, uncomplicated MG SCREENING W MIRACLE FUNMI DIGI Routine 01/03/2019 8:57 AM CDT Screening breast examination from Last 3 Months or Most Recently Relevant to Health Maintenance Results * CT LUNG SCREENING (06/13/2024 8:22 AM SCHOOL BUS ATTENDANT) Anatomical Region Laterality Modality Chest Computed Tomogra phy 06/13/2024 9:35 AM SCHOOL BUS ATTENDANT Impressions 06/13/2024 9:55 AM SCHOOL BUS ATTENDANT IMPRESSION: 1. LUNG-RADS category 2. Stable. Benign behavior. 2. LUNG-RADS category S: Enlarged thyroid gland, possible multinodular.. 3. Coronary artery disease. RECOMMENDATIONS: 1. Thyroid sonogram. 2. Return to annual LDCT screening on or around June 2025. Ordered By: JONO BACA Interpreted By: Ted Ledesma MD, 06/13/2024 9:35 AM Narrative 06/13/2024 9:55 AM SCHOOL BUS ATTENDANT [address] [address] Examination: Lung Screening Low-Dose Ct Thorax Without [...] Procedure Note Ted Ledesma MD - 06/13/[address] [address] Examination: Lung Screening Low-Dose Ct Thorax Without [...] Stable posterior right lower lobe small cluster [id number] (axial lung window image 61) No new [...] Most Recently Relevant to Health Maintenance [place] [place] [address] MEDICAID Care Teams Jacquard Loom Heddles Tier Relationship Specialty Start Date End Date Jono Baca MD PCP - General INTERNAL MEDICINE 12/20/18
--- OUTSIDE RECORDS SUMMARY | 2024-08-29 18:28 | XMS_ITS | Clinical Summary ---
Author Organization [facility] Address [address] [place] [address] Care Team Providers Care Service Desk Director Name Role Phone Unavailable Primary Care Provider [...]
--- OUTSIDE RECORDS SUMMARY | 2024-08-29 18:28 | XMS_ITS ---
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 Name Role Phone Jono Phillips MD Primary Care Provider [phone] Christopher French MD Unavailable [phone] Radha Hamm MD Unavailable [phone] Active Problems Problem Noted Date Diagnosed Date Personal history of radiation therapy 05/26/2022 Malignant neoplasm of lower- outer quadrant of right breast of female, estrogen receptor positive 02/23/2022 Cancer Staging:Clinical stage from 02/25/2022:Stage IA(cT1, cN0(f), cM0, G2, ER+, ND+, HER2-) - Signed by Radha Hamm MD on 02/25/2022 Pathologic stage from 03/20/2022:Stage IA(pT1b, pN0(sn), cM0, G2, ER+, ND+, HER2-) - Signed by Radha Hamm MD on 03/20/2022 Current Treatment and Therapy Plans No current plan information found. Past Treatment and Therapy Plans No past plan information found. Radiation Treatments * Course [id number] - 04/24/2022 Treatment Period Energy Fraction Dose Fractions Total Dose Plans Planned PRNE_RT BRST 04/06/2022 - 04/24/2022 267 15 / ,005 Reference Points Delivered PRNE_RT BRST 04/06/2022 - 04/24/2022 4,005 Treatment Summaries Malignant neoplasm of lower-outer quadrant of right breast of female, estrogen receptor positive (HCC)* Images from the original note were not included. [facility] [address], [address] [place], [place] [address] This Survivorship Care Plan is a cancer treatment summary and follow-up plan and is provided to youto keep with your health care records and to share with your primary care provider or any of your doctors and nurses. This summary is a brief record of major aspects of your cancer treatment not a detailed or comprehensive record of your care. You should review this with your cancer provider. Treatment Summary and Survivorship Care Plan for Breast Cancer General Information Patient name Vero Castro (home) Date of 1955 Health Care Providers (Including Names, Institutions) Provider Name: Contact Information: Primary Care Physician Jono Phillips MD [phone] Surgeon Christopher French MD [phone] Radiation Oncologist Radha Hamm MD [phone] Medical Oncologist Devin Lewis DO [phone] Treatment Summary Cancer Diagnosis Information Diagnosis Malignant neoplasm of lower-outer quadrant of right breast of female, estrogen receptor positive (CMS/HCC) (HCC) Diagnosis date 01/29/2022 Staging information Cancer Staging Malignant neoplasm of lower-outer quadrant of right breast of female, estrogen receptor positive (CMS/HCC) (HCC) Staging form: Breast, AJCC 8th Edition - Clinical stage from 02/25/2022: Stage IA (cT1, cN0(f), cM0, G2, ER+, ND+, HER2- ) - Signed by Radha Hamm MD on 02/25/2022 - Pathologic stage from 03/20/2022: Stage IA (pT1b, pN0(sn), cM0, G2, ER+, ND+, HER2-) - Signed by Radha Hamm MD on 03/20/2022 Estrogen: Positive Estrogen: Positive Progesterone: Positive Progesterone: Positive HER2: Negative HER2: Negative Treatment Completed Surgery Surgery date 01/29/2022 Surgical procedure Right Breast Biopsy Surgery date 03/09/2022 Surgical procedure Right Lumpectomy Radiation Radiation Treatments Active Plans PRNE_RT BRST Most recent treatment: Dose planned: 267 cGy (fraction 15 on 04/24/2022) Total: Dose planned: 4,005 cGy Elapsed Days: 18 Reference Points PRNE_RT BRST Most recent treatment: Dose given: 267 cGy (on 04/24/2022) Total: Dose given: 4,005 cGy Elapsed Days: 18 Historical No historical radiation treatments to show. Systemic Therapy (chemotherapy, hormonal therapy, other) [No matching plan found] Lifetime Dose Tracking Lifetime Dose Tracking No doses have been documented on this patient for the following tracked chemicals: doxorubicin, epirubicin, idarubicin, daunorubicin, mitoxantrone, bleomycin, mitomycin, cyclophosphamide, carmustine,cisplatin, ifosfamide, carboplatin, fluorouracil, etoposide, doxorubicin HCl pegylated liposomal, et oposide phosphate, valrubicin, doxorubicin isotoxic equivalent Research Studies Persistent symptoms or side effects that have continued after finishing treatment: fatigue, numbness, pain Family History Cancer Cancer-related family history is not on file. Genetic Testing No Tell your provider if there is a history of cancer in your family, if another member of your familywas diagnosed with cancer since your last visit. The following risk factors may indicate that breast cancer could run in the family: Scientology heritage History of ovarian cancer in the patient or any 1st or 2nd degree relative Any 1st degree relative with breast cancer before the age of 50 Two or more 1st or 2nd degree relative diagnosed with breast cancer at any age Patient or relative diagnosed with bilateral breast cancer History of breast cancer in a male relative Treatment Ongoing Additional Treatment Start Date Planned Duration Possible Side Effects Aromatase Inhibitors (anastrozole, exemestane and letrozole) 05/14/2022 5 years Hot flashes, joint/muscle aches, vaginal dryness and bone loss (common); hair thinning (rare) Other rare side effects may occur. Calcium + Vitamin D 19-50 years age and males age 51-70 years: recommend 1,000 mg/day calcium & 600 IU/day vitamin D Females age 51-70 1200 mg/day calcium and 600 IU/day vitamin D Over 70 years age take 1200 mg/day calcium and 800 IU/day of vitamin D 2000 international units daily Lifelong An irregular heartbeat; nausea, constipation; weakness, drowsiness, headache; dry mouth,or a metallic taste in your mouth; or muscle or bone pain. Follow-up Care Plan Your follow-up care plan is design to inform you and primary care providers regarding the recommended and required follow-up, cancer screening and routine health maintenance that is needed to maintain optimal health. 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 Not recommended in the absence of signs or symptoms of cancer recurrence Possible late- and long-term effects that someone with this type of cancer and treatment may experience: Fatigue Many patients experience some level of fatigue. Some patients experience severe and ongoing fatigue. An active lifestyle with healthy sleep patterns can improve your energy levels. Talk to your provider about ongoing (more than 3 months) fatigue. Osteoporosis Patients on hormone therapies and who experience early menopause are at a higher risk of developingfractures, osteopenia (lower than normal bone density) and osteoporosis (loss of bone density). Weight bearing exercise, adequate intake calcium and vitamin D are helpful. Bone density scans are usedto evaluate bone health. Movement or strength changes Some patients experience loss of strength or difficulty with mobility or range of motion after surgery or their cancer treatments. Talk with your provider if you can no longer move the way you did before your cancer treatment or if you feel weak or unsteady or you have fallen. Physical therapy or rehabilitation may be helpful. Weight management and Nutrition Some patients find it difficult to maintain good nutrition during or after treatment. This can leadto weight loss or weight gain. Aim for a normal body mass index (BMI) of 18.5-24.9, talk to your provider about your BMI. Being overweight may increase your risk of cancer recurrence and other diseases. Eat a healthy diet, focus on lean meats and proteins, more fruits, vegetables and whole grains and low in sugars and fats. Limit red meat and avoid processed meat. Work to maintain healthy weight behaviors that include diet and physical activity. Menopause or Sexual changes or symptoms of estrogen deprivation (hot flashes, sweats, vaginal discharge or dryness, painful intercourse). The desire to engage in sexual activity may lessen due to low energy, decreased sexual function and/or changes in appearance. Symptoms of menopause may cause vaginal changes and/or dryness. Your riskdepends on your age and the kind of treatment you received. Cancer diagnosis and treatment may cause existing sexual problems to be worse. Evaluation of sexual function and professional counseling may be helpful. The use of pmqa-dpt-mxldhle lubricants may lessen painful intercourse. Talk with your provider about sexual changes and symptoms of menopause. Promising non-hormone treatments that may include antidepressants (drugs that treat depression), dietary changes, acupuncture and exercise may h elp lessen symptoms. Psychosocial Distress (Emotional stress, worry or depression). Many patients experience distress, anxiety or depression at some point. This can include worry, difficulty sleeping or sadness and often lessens over time. Discuss this with your provider; a referralto a therapist may be helpful. Physical activity has been shown to relieve stress. Some patients may benefit from the use of medication. It is important to remember that these symptoms can be due to other causes like diabetes or with normal aging. If these or any other new symptoms occur bring these to attention of your health care provider. These symptoms should be brought to the attention of your provider: Anything that represents a brand new symptom; Anything that represents a persistent symptom; Anything you are worried about that might be related to the cancer coming back. Please continue to see your primary care provider for all general health care recommended for a patient your age such as routine immunizations, and routine non-breast cancer screening like colonoscopy or bone density exams. Consult with your health care provider about prevention and screening for bone loss using bone density tests. Cancer survivors may experience issues with the areas listed below. If you have any concerns in these or other areas, please speak with your doctors or nurses to find out how you can get help with them. Anxiety and depression Emotional and mental health Fatigue Fertility Financial advice or assistance Insurance Memory or concentration loss Parenting Physical functioning School/work Sexual functioning Stopping smoking Weight changes Other A number of lifestyle/behaviors can affect your ongoing health, including the risk for the cancer coming back or developing another cancer. Discuss these recommendations with your doctor or nurse: Eat a healthy diet: focus on lean meats and proteins, more fruits, vegetables and whole grains and low in sugars and fats. Limit red meat and avoid processed meat. Maintain a healthy weight; avoid being overweight. Aim for a normal body mass index (BMI) of 18.5-24.9. Help learning to eat healthier, call the roll winder at: [facility] [place] Have an active lifestyle, strive for 30 minutes of moderate exercise 5 times a week and strength orresistance training at least twice a week. Use broad-spectrum (UVA+UVB) sunscreen with SPF 30 or greater, is water resistant, limit time spentin the sun (10 am-4 pm), wear hat, wear UV protective clothing, wear sunglasses. Never use a tanning bed. Skin that was irradiated may be more sensitive over your lifetime. Do not smoke or chew tobacco; participate in a smoking cessation program. Limit alcohol intake, 1 drink per day for a woman and 2 drinks per day for a man. Resources you may be interested in: [facility] A National Cancer [place] [facility] http://www.[facility]/ [facility] 1st floor of [facility] Medicine [phone]. Computer access, educational material, counseling services (FREE) Cancer Resources: www.cancer.net [place] Disabilities Act: The U.S. Department of Justice provides information about the Americans with Disabilities Act (ADA). Toll free number http://www.ada.gov/ Occupational Therapy at [facility]. Improve memory and thinking following chemotherapy. Improve your performance at home, work and in the community. or Toll free www.ot.[facility]/patients Managing your weight after a cancer diagnosis: http://www.cancer.net/sites/cancer.net/files/weight_after_cancer_diagnosis.pdf National Coalition for Cancer Survivorship: http://www.canceradvocacy.org/ [place] Cancer Society Cancer Survivors Network: http://csn.cancer.org/ [employer]: https://survivorship.cancer.gov/ an online tool for cancer survivors andcaregivers created by the [place] Cancer Society and the National Cancer [place]. It provides: Information on dealing with side effects from cancer and treatment Caregivers with support and resources Practical advice about talking to friends and family about cancer Questions to ask their health care team Help understanding their rights in the workplace
--- OUTSIDE RECORDS SUMMARY | 2024-08-29 18:28 | XMS_ITS | Clinical Summary ---
Author Organization 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 Gender Identity Not on file Sexual Orientation Not on file Last Filed Vital Signs Vital Sign Reading Time Taken Comments Blood Pressure 168/74 05/27/2011 8:29 AM MANAGER HEAVY DUTY Pulse 82 03/08/2011 7:00 AM CDT Temperature 36.9 C (98.4 F) 03/08/2011 7:00 AM CDT Respiratory Rate 14 03/07/2011 5:32 AM CDT Oxygen Saturation 99% 03/08/2011 9:23 AM CDT Inhaled Oxygen Concentration - - Weight 72.6 kg (160 lb) 05/27/2011 8:29 AM MANAGER HEAVY DUTY Height 162.6 cm (5' 4 ) 05/27/2011 8:29 AM MANAGER HEAVY DUTY Body Mass Index 27.46 05/27/2011 8:29 AM MANAGER HEAVY DUTY Plan of Treatment Health Maintenance Due Date [...] Advance Directives For more information, please contact: [phone] * Full Code (Latest Code Status on File) Date Activated Date Inactivated Comments 03/02/2011 7:53 AM 03/08/2011 5:35 PM * Full Code Date Activated Date Inactivated Comments 02/26/2011 3:19 PM 03/02/2011 7:53 AM
== END ==
LOC: ANHLAB 16:08
PROVIDERS: PCP Internal Medicine; Visit Provider Plastic Surgery
DX: L72.3 Sebaceous cyst (principal)
CPT/HCPCS: 88305